=== PATIENT | female | born 1970 | race African-American/Black ===

== ENCOUNTER 2020-01-21 19:43 | Emergency (ER) | payer BC ==
[~2020-01-21] VITALS: Ht 149.9 cm; Wt 75.7 kg
--- OUTSIDE RECORDS SUMMARY | 2020-01-21 19:46 | XMS REPORT ---
Author [facility] Address Unknown Phone Unavailable Care Team Providers Care Installer Technician Name Role Phone ARNOLD EMERY Unavailable Unavailable WOOD SHORT Unavailable Unavailable MIRANDA GUEVARA Unavailable Unavailable ASHLEY CASTILLO Unavailable Unavailable GREGG HUTCHINSON Unavailable Unavailable Payers Payer Name Policy Type Policy Number Effective Date Expiration Date Problems This patient has no known problems. Allergies, Adverse Reactions, Alerts Allergy Name Allergy Type Status Severity Reaction(s) Onset Date Inactive Date Treating Clinician Comments prochlorperazine edisylate DA Active U 2012-11-09 00:00:00 prochlorperazine maleate DA Active U 2012-11-09 00:00:00 Medications This patient has no known medications. Results Test Description Test Time Test Comments Text Results Atomic Results Result Comments RAPID INFLUENZA A&B SCREEN 2020-01-18 04:41:00 RAPID INFLUENZA A AG ([employer]ER) (test iohs=9452) Negative Negative, Inconclusive RAPID INFLUENZA B AG (BEAKER) (test jjsn=2864) Negative Negative, Inconclusive RAD, CHEST, 2 [id number] 04:34:00Reason for exam:->SHORTNESS OF BREATHReason for exam:->FEVERReason for exam:->COUGHIs the patient ?-> NoShould this be performed at the bedside?->NoFINAL REPORT TECHNIQUE: RAD, CHEST, 2 VIEWS COMPARISON: Multiple prior plain radiograph of the chest most recently 08/13/2019. Additional clinical history: Shortness of breath and fever. IMPRESSION: The cardiomediastinal silhouette is within normal limits. Unchanged bandlike airspace opacities in the bilateral lower lungs and compared to multiple prior studies. No new lobar consolidation. No pleural effusion or pneumothorax. Osseous structures are grossly unremarkable. Signed: [facility] Verified Date/Time: 04:34:12 Electronically signed by: JOHNNIE ASCENCIO MD on 12/22 04:34 AM BASIC METABOLIC [id number] 05:57:00* Test Item Value Reference Range Comments SODIUM (BEAKER) (test ruoj=718) 140 meq/L 135-148 POTASSIUM (BEAKER) (test xtrx=677) 4.2 meq/L 3.6-5.5 Specimen slightly hemolyzed CHLORIDE (BEAKER) (test ktto=046) 107 meq/L 98-106 CO2 (BEAKER) (test virq=843) 26 meq/L 20-29 BLOOD UREA NITROGEN (BEAKER) (test gerh=149) 13 mg/dL 10-26 CREATININE (BEAKER) (test vmak=825) 0.66 mg/dL 0.50-1.20 Specimen slightly hemolyzed GLUCOSE RANDOM (BEAKER) (test agmi=573) 105 mg/dL 70-110 CALCIUM (BEAKER) (test cmrk=575) 8.5 mg/dL 8.5-10.5 EGFR (BEAKER) (test lprc=6235) 114 mL/min/1.73 sq m ESTIMATED GFR IS NOT ACCURATE CREATININE CLEARANCE IN PREDICTING GLOMERULAR FILTRATION RATE. ESTIMATED GFR IS NOT APPLICABLE FOR DIALYSIS PATIENTS. CBC W/PLT COUNT & AUTO [id number] 05:44:00* Test Item Value Reference Range Comments WHITE BLOOD CELL COUNT (BEAKER) (test egcr=645) 7.8 K/ L 4.0-10.0 RED BLOOD CELL COUNT (BEAKER) (test qceq=702) 3.00 M/ L 4.00-5.00 HEMOGLOBIN (BEAKER) (test wifh=804) 8.4 GM/DL 12.0-15.5 HEMATOCRIT (BEAKER) (test dlxg=136) 25.6 % 36.0-46.0 MEAN CORPUSCULAR VOLUME (BEAKER) (test uqcz=548) 85.3 fL 82.0-99.0 MEAN CORPUSCULAR HEMOGLOBIN (BEAKER) (test xpge=415) 28.0 pg 27.0-33.0 MEAN CORPUSCULAR HEMOGLOBIN CONC (BEAKER) (test ylks=738) 32.8 GM/DL 32.0-36.0 RED CELL DISTRIBUTION WIDTH (BEAKER) (test fkej=266) 14.8 % 12.0-15.0 PLATELET COUNT (BEAKER) (test bezo=593) 177 K/CU MM 150-430 MEAN PLATELET VOLUME (BEAKER) (test nfxn=809) 10.0 fL 6.0-11.5 NUCLEATED RED BLOOD CELLS (BEAKER) (test hmgm=721) 0 /100 WBC 0-0 NEUTROPHILS RELATIVE PERCENT (BEAKER) (test mujk=976) 59 % LYMPHOCYTES RELATIVE PERCENT (BEAKER) (test xjbs=986) 30 % MONOCYTES RELATIVE PERCENT (BEAKER) (test cyqi=364) 7 % EOSINOPHILS RELATIVE PERCENT (BEAKER) (test afsu=421) 2 % BASOPHILS RELATIVE PERCENT (BEAKER) (test lrkv=435) 0 % NEUTROPHILS ABSOLUTE COUNT (BEAKER) (test llto=152) 4.58 K/ L 1.80-8.00 LYMPHOCYTES ABSOLUTE COUNT (BEAKER) (test akpa=179) 2.34 K/ L 1.48-4.50 MONOCYTES ABSOLUTE COUNT (BEAKER) (test ysgy=075) 0.56 K/ L 0.00-1.30 EOSINOPHILS ABSOLUTE COUNT (BEAKER) (test owcq=556) 0.12 K/ L 0.00-0.50 BASOPHILS ABSOLUTE COUNT (BEAKER) (test cgrc=657) 0.03 K/ L 0.00-0.20 IMMATURE GRANULOCYTES-RELATIVE PERCENT (BEAKER) (test occb=8602) 2 % 0-0 HEMOGLOBIN AND [id number] 17:14:00* Test Item Value Reference Range Comments HEMOGLOBIN (BEAKER) (test gvkc=381) 7.8 GM/DL 12.0-15.5 HEMATOCRIT (BEAKER) (test ssxx=128) 23.6 % 36.0-46.0 BASIC METABOLIC [id number] 06:02:00* Test Item Value Reference Range Comments SODIUM (BEAKER) (test qpwr=564) 139 meq/L 135-148 POTASSIUM (BEAKER) (test alvd=410) 4.6 meq/L 3.6-5.5 CHLORIDE (BEAKER) (test fzqm=080) 106 meq/L 98-106 CO2 (BEAKER) (test szza=649) 26 meq/L 20-29 BLOOD UREA NITROGEN (BEAKER) (test yali=016) 13 mg/dL 10-26 CREATININE (BEAKER) (test qjko=895) 0.72 mg/dL 0.50-1.20 GLUCOSE RANDOM (BEAKER) (test uidh=242) 119 mg/dL 70-110 CALCIUM (BEAKER) (test smqq=366) 8.7 mg/dL 8.5-10.5 EGFR (BEAKER) (test hska=3404) 104 mL/min/1.73 sq m ESTIMATED GFR IS NOT ACCURATE CREATININE CLEARANCE IN PREDICTING GLOMERULAR FILTRATION RATE. ESTIMATED GFR IS NOT APPLICABLE FOR DIALYSIS PATIENTS. CBC W/PLT COUNT & AUTO [id number] 05:48:00* Test Item Value Reference Range Comments WHITE BLOOD CELL COUNT (BEAKER) (test jzxh=843) 7.0 K/ L 4.0-10.0 RED BLOOD CELL COUNT (BEAKER) (test cjem=518) 2.39 M/ L 4.00-5.00 HEMOGLOBIN (BEAKER) (test kheg=488) 6.7 GM/DL 12.0-15.5 HEMATOCRIT (BEAKER) (test uczb=541) 20.5 % 36.0-46.0 MEAN CORPUSCULAR VOLUME (BEAKER) (test djft=802) 85.8 fL 82.0-99.0 MEAN CORPUSCULAR HEMOGLOBIN (BEAKER) (test ldya=208) 28.0 pg 27.0-33.0 MEAN CORPUSCULAR HEMOGLOBIN CONC (BEAKER) (test myyh=803) 32.7 GM/DL 32.0-36.0 RED CELL DISTRIBUTION WIDTH (BEAKER) (test tpco=092) 13.6 % 12.0-15.0 PLATELET COUNT (BEAKER) (test qwit=055) 189 K/CU MM 150-430 MEAN PLATELET VOLUME (BEAKER) (test lovo=010) 9.5 fL 6.0-11.5 NUCLEATED RED BLOOD CELLS (BEAKER) (test dljj=323) 0 /100 WBC 0-0 NEUTROPHILS RELATIVE PERCENT (BEAKER) (test zete=613) 68 % LYMPHOCYTES RELATIVE PERCENT (BEAKER) (test rnls=922) 21 % MONOCYTES RELATIVE PERCENT (BEAKER) (test abft=659) 10 % EOSINOPHILS RELATIVE PERCENT (BEAKER) (test rltk=681) 0 % BASOPHILS RELATIVE PERCENT (BEAKER) (test ttgh=477) 0 % NEUTROPHILS ABSOLUTE COUNT (BEAKER) (test ojnf=858) 4.73 K/ L 1.80-8.00 LYMPHOCYTES ABSOLUTE COUNT (BEAKER) (test lklj=152) 1.43 K/ L 1.48-4.50 MONOCYTES ABSOLUTE COUNT (BEAKER) (test qrki=648) 0.72 K/ L 0.00-1.30 EOSINOPHILS ABSOLUTE COUNT (BEAKER) (test czoy=741) 0.02 K/ L 0.00-0.50 BASOPHILS ABSOLUTE COUNT (BEAKER) (test qmhq=223) 0.02 K/ L 0.00-0.20 IMMATURE GRANULOCYTES-RELATIVE PERCENT (BEAKER) (test mwue=8595) 1 % 0-0 VENOUS DOPPLER LEG, [id number] 11:32:00Reason for exam:->Edema, painFINAL REPORT Right lower extremity venous Doppler History: Right leg swelling, recent knee surgery Comparison: none Findings: Study is ob tained using morgan scale, compression technique, and color flow/spectral analysis . The right common femoral, superficial femoral, and popliteal veins demonstrate expected compressibility. No echogenic filling defect or turbulent flow is tasneem ntified. Expected venous waveforms and augmentation responses are observed thro ughout. Interrogated portions of the right posterior tibial and peroneal veins a ppear patent. Impression: No evidence of deep venous thrombosis in the right low er extremity. Right lower extremity arterial Doppler HISTORY: Right leg swelli ng, status post recent right knee surgery COMPARISON: None FINDINGS: The study i s obtained utilizing conventional grayscale imaging as well as color flow with s pectral analysis. The right common femoral, superficial femoral, popliteal, ante rior and posterior tibial, and peroneal arteries are widely patent. No atheroscl erotic plaque formation is visualized. There is no appreciable luminal narrowing . No significant focal velocity acceleration is identified. There is no blunting of systolic upstroke. IMPRESSION: Unremarkable right lower extremity arterial D oppler. Signed: Angel Haynes MDReport Verified Date/Time: 08/13/2019 11:32:4 3 Reading Location: [facility] Diagnostic Imaging Reading Room - [place] [id number] ectronically signed by: ANGEL HAYNES MD on 08/13/2019 11:32 AM ARTERIAL DOPPLER LEG, [id number] 11:32:00Reason for exam:->edema, pain, parathesias FINAL REPORT Right lower extremity venous Doppler History : Right leg swelling, recent knee surgery Comparison: none Findings: Study is ob tained using morgan scale, compression technique, and color flow/spectral analysis . The right common femoral, superficial femoral, and popliteal veins demonstrate expected compressibility. No echogenic filling defect or turbulent flow is tasneem ntified. Expected venous waveforms and augmentation responses are observed thro ughout. Interrogated portions of the right posterior tibial and peroneal veins a ppear patent. Impression: No evidence of deep venous thrombosis in the right low er extremity. Right lower extremity arterial Doppler HISTORY: Right leg swelli ng, status post recent right knee surgery COMPARISON: None FINDINGS: The study i s obtained utilizing conventional grayscale imaging as well as color flow with s pectral analysis. The right common femoral, superficial femoral, popliteal, ante rior and posterior tibial, and peroneal arteries are widely patent. No atheroscl erotic plaque formation is visualized. There is no appreciable luminal narrowing . No significant focal velocity acceleration is identified. There is no blunting of systolic upstroke. IMPRESSION: Unremarkable right lower extremity arterial D oppler. Signed: Angel Haynes MDReport Verified Date/Time: 08/13/2019 11:32:4 3 Reading Location: [facility] Diagnostic Imaging Reading Room - [address] ectronically signed by: ANGEL HAYNES MD on 08/13/2019 11:32 AM COMPREHENSIVE METABOLIC [id number] 10:48:00* Test Item Value Reference Range Comments TOTAL PROTEIN (BEAKER) (test cvsd=351) 5.8 gm/dL 6.0-8.5 Specimen slightly hemolyzed ALBUMIN (BEAKER) (test bmfm=1280) 3.5 g/dL 3.5-5.0 Specimen slightly hemolyzed ALKALINE PHOSPHATASE (BEAKER) (test dgrz=998) 48 U/L 30-115 BILIRUBIN TOTAL (BEAKER) (test xwbh=360) 0.3 mg/dL 0.1-1.2 Specimen slightly hemolyzed SODIUM (BEAKER) (test xnsv=128) 134 meq/L 135-148 POTASSIUM (BEAKER) (test csut=902) 5.1 meq/L 3.6-5.5 Specimen slightly hemolyzed CHLORIDE (BEAKER) (test ysju=067) 103 meq/L 98-106 CO2 (BEAKER) (test kfkp=330) 21 meq/L 20-29 BLOOD UREA NITROGEN (BEAKER) (test uisd=272) 13 mg/dL 10-26 CREATININE (BEAKER) (test mces=225) 0.70 mg/dL 0.50-1.20 Specimen slightly hemolyzed GLUCOSE RANDOM (BEAKER) (test npfk=257) 117 mg/dL 70-110 CALCIUM (BEAKER) (test gpbg=766) 8.8 mg/dL 8.5-10.5 AST (SGOT) (BEAKER) (test yfqp=282) 18 U/L 5-40 Specimen slightly hemolyzed ALT (SGPT) (BEAKER) (test xifv=387) 14 U/L 5-50 Specimen slightly hemolyzed EGFR (BEAKER) (test dueg=9193) 107 mL/min/1.73 sq m ESTIMATED GFR IS NOT ACCURATE CREATININE CLEARANCE IN PREDICTING GLOMERULAR FILTRATION RATE. ESTIMATED GFR IS NOT APPLICABLE FOR DIALYSIS PATIENTS. TROPONIN [id number] 10:32:00* Test Item Value Reference Range Comments TROPONIN I (BEAKER) (test rhal=337) < ng/mL 0.00-0.15 Troponin I (TnI) levels must be interpreted in the context of the presenting sym ptoms and the clinical findings. Elevated TnI levels indicate myocardial damage, but are not specific for ischemic heart disease. Elevated TnI levels are seen in patients with other cardiac conditions (including myocarditis and congestive h eart failure), and slight TnI elevations occur in patients with other conditions , including sepsis, renal failure, acidosis, acute neurological disease, and per sistent tachyarrhythmia.CREATINE KINASE (CK)2019-08-13 10:25:00* Test Item Value Reference Range Comments CREATINE KINASE TOTAL (BEAKER) (test rukb=291) 299 U/L 25-235 CBC W/PLT COUNT & AUTO [id number] 10:09:00* Test Item Value Reference Range Comments WHITE BLOOD CELL COUNT (BEAKER) (test engp=116) 6.1 K/ L 4.0-10.0 RED BLOOD CELL COUNT (BEAKER) (test oqoq=547) 2.93 M/ L 4.00-5.00 HEMOGLOBIN (BEAKER) (test ctqt=032) 8.3 GM/DL 12.0-15.5 HEMATOCRIT (BEAKER) (test pxae=152) 27.2 % 36.0-46.0 MEAN CORPUSCULAR VOLUME (BEAKER) (test pyzk=847) 92.8 fL 82.0-99.0 MEAN CORPUSCULAR HEMOGLOBIN (BEAKER) (test kndb=925) 28.3 pg 27.0-33.0 MEAN CORPUSCULAR HEMOGLOBIN CONC (BEAKER) (test bget=050) 30.5 GM/DL 32.0-36.0 RED CELL DISTRIBUTION WIDTH (BEAKER) (test kssv=989) 13.5 % 12.0-15.0 PLATELET COUNT (BEAKER) (test vakn=621) 181 K/CU MM 150-430 MEAN PLATELET VOLUME (BEAKER) (test qjpt=185) 9.6 fL 6.0-11.5 NUCLEATED RED BLOOD CELLS (BEAKER) (test xqin=818) 0 /100 WBC 0-0 NEUTROPHILS RELATIVE PERCENT (BEAKER) (test xhpx=113) 76 % LYMPHOCYTES RELATIVE PERCENT (BEAKER) (test kpmg=918) 13 % MONOCYTES RELATIVE PERCENT (BEAKER) (test vaov=288) 10 % EOSINOPHILS RELATIVE PERCENT (BEAKER) (test ojwd=811) 0 % BASOPHILS RELATIVE PERCENT (BEAKER) (test dhvp=138) 0 % NEUTROPHILS ABSOLUTE COUNT (BEAKER) (test txgg=826) 4.63 K/ L 1.80-8.00 LYMPHOCYTES ABSOLUTE COUNT (BEAKER) (test dpln=627) 0.79 K/ L 1.48-4.50 MONOCYTES ABSOLUTE COUNT (BEAKER) (test slda=597) 0.61 K/ L 0.00-1.30 EOSINOPHILS ABSOLUTE COUNT (BEAKER) (test gsap=167) 0.01 K/ L 0.00-0.50 BASOPHILS ABSOLUTE COUNT (BEAKER) (test qyyf=696) 0.02 K/ L 0.00-0.20 IMMATURE GRANULOCYTES-RELATIVE PERCENT (BEAKER) (test gdel=9281) 0 % 0-0 RAD, CHEST, 1 VIEW, NON [id number] 09:38:00Reason for exam:->SOBFINAL REPORT CLINICAL HISTORY: SOB TECHNIQUE: 1 view of the chest. COMPARISON: 07/12/2019 IMPRESSION: There is minimal bibasilar atelectasis. There is no significant pleural fluid. The cardiomediastinal silhouette is magnified by technique. Signed: Amie Garcia MDReport Verified Date/Time: 08/13/2019 09:38:27 Reading Location: [facility] Radiology Reading Room Shae ctronically signed by: AMIE GARCIA M.D. on 08/13/2019 09:38 AM PHOSPHORUS 2019-08-13 09:26:00* Test Item Value Reference Range Comments PHOSPHORUS (BEAKER) (test pcvz=081) 3.4 mg/dL 2.5-4.5 BASIC METABOLIC [id number] 06:06:00* Test Item Value Reference Range Comments SODIUM (BEAKER) (test jqlh=247) 135 meq/L 135-148 POTASSIUM (BEAKER) (test vbhd=364) 4.6 meq/L 3.6-5.5 CHLORIDE (BEAKER) (test nvdh=400) 102 meq/L 98-106 CO2 (BEAKER) (test nxnu=280) 24 meq/L 20-29 BLOOD UREA NITROGEN (BEAKER) (test ghlf=943) 14 mg/dL 10-26 CREATININE (BEAKER) (test lxhr=424) 0.72 mg/dL 0.50-1.20 GLUCOSE RANDOM (BEAKER) (test usnq=062) 124 mg/dL 70-110 CALCIUM (BEAKER) (test ynac=911) 8.7 mg/dL 8.5-10.5 EGFR (BEAKER) (test fhgn=3006) 104 mL/min/1.73 sq m ESTIMATED GFR IS NOT ACCURATE CREATININE CLEARANCE IN PREDICTING GLOMERULAR FILTRATION RATE. ESTIMATED GFR IS NOT APPLICABLE FOR DIALYSIS PATIENTS. CBC W/PLT COUNT & AUTO [id number] 05:56:00* Test Item Value Reference Range Comments WHITE BLOOD CELL COUNT (BEAKER) (test xwtu=998) 6.0 K/ L 4.0-10.0 RED BLOOD CELL COUNT (BEAKER) (test mgtu=857) 3.23 M/ L 4.00-5.00 HEMOGLOBIN (BEAKER) (test agqk=236) 9.2 GM/DL 12.0-15.5 HEMATOCRIT (BEAKER) (test rgzr=488) 28.6 % 36.0-46.0 MEAN CORPUSCULAR VOLUME (BEAKER) (test ewfx=181) 88.5 fL 82.0-99.0 MEAN CORPUSCULAR HEMOGLOBIN (BEAKER) (test dmli=103) 28.5 pg 27.0-33.0 MEAN CORPUSCULAR HEMOGLOBIN CONC (BEAKER) (test eqls=123) 32.2 GM/DL 32.0-36.0 RED CELL DISTRIBUTION WIDTH (BEAKER) (test nhmx=575) 13.4 % 12.0-15.0 PLATELET COUNT (BEAKER) (test uzar=956) 219 K/CU MM 150-430 MEAN PLATELET VOLUME (BEAKER) (test letw=507) 9.7 fL 6.0-11.5 NUCLEATED RED BLOOD CELLS (BEAKER) (test sisx=992) 0 /100 WBC 0-0 NEUTROPHILS RELATIVE PERCENT (BEAKER) (test ubss=053) 68 % LYMPHOCYTES RELATIVE PERCENT (BEAKER) (test tcqt=525) 21 % MONOCYTES RELATIVE PERCENT (BEAKER) (test uthq=541) 9 % EOSINOPHILS RELATIVE PERCENT (BEAKER) (test zlit=223) 1 % BASOPHILS RELATIVE PERCENT (BEAKER) (test ohxv=857) 0 % NEUTROPHILS ABSOLUTE COUNT (BEAKER) (test jjph=213) 4.07 K/ L 1.80-8.00 LYMPHOCYTES ABSOLUTE COUNT (BEAKER) (test ifzf=140) 1.28 K/ L 1.48-4.50 MONOCYTES ABSOLUTE COUNT (BEAKER) (test kvdm=610) 0.56 K/ L 0.00-1.30 EOSINOPHILS ABSOLUTE COUNT (BEAKER) (test zolv=854) 0.03 K/ L 0.00-0.50 BASOPHILS ABSOLUTE COUNT (BEAKER) (test rhci=731) 0.02 K/ L 0.00-0.20 IMMATURE GRANULOCYTES-RELATIVE PERCENT (BEAKER) (test lcik=3137) 0 % 0-0 MRSA [id number] 08:47:00* Test Item Value Reference Range Comments CULTURE (BEAKER) (test kfmj=6195) No MRSA isolated RAD, CHEST, 2 [id number] 12:14:00Reason for Exam:->pre-operative clearance FINAL REPORT History: Right knee pain, right knee osteoa rthritis, preoperative evaluation for knee arthroplasty Comparison: 08/17/2017 F indings: The lungs are clear. No pleural effusions or pneumothorax. The heart sh adow is normal in size. The thoracic aorta is normal in caliber. Degenerative ch anges are present in the spine. Impression: No evidence of acute cardiopulmonary disease. Signed: Ravi Colón Verified Date/Time: 07/12/2019 12:14:06 Reading Location: [facility] Radiology Reading Room , JOINT SURVEY, 1V 2 OR MORE JOINTS 2019-07-12 12:13:00Reason for Exam:->[facility] protocol , right knee arthoplasty FINAL REPORT AP WEIGHT-BEARING RADIOGRAPHS OF THE RIGHT L OWER EXTREMITY HISTORY: Right knee osteoarthritis, preoperative evaluation for r ight knee arthroplasty COMPARISON: MRI right knee limited of the same date FINDI NGS: AP weight-bearing radiographs of the right lower extremity were obtained us ing the [facility] protocol. There is advanced joint space narrowing in the medi al femorotibial joint, associated with subchondral sclerosis and moderate margin al osteophytes. No abnormalities are seen in the right hip or right ankle. Sign ed: Ravi Colón Verified Date/Time: 07/12/2019 12:13:23 Reading Locat ion: [facility] Radiology Reading Room , EXTREMITY, LOWER, JOINT, WITHOUT CONTRAST, RIGHT 2019-07-12 12:04:00Reason for Exam:->[facility]are protocolFINAL REPORT MRI of the right knee History: [facility] protocol Comparison: No priors Technique: Multiplanar multisequence MRI of the right knee was performed without contrast. Findings: Extensor mechanism: The patellar and quadriceps tendons are intact. No retinacular abnormalities. Ligaments: The anterior and posterior cruciate ligaments are intact. The medial and lateral collateral ligament complexes are intact. Menisci: There is maceration of the anterior horn and body of the medial meniscus, which are also extruded. Posterior horn of the medial meniscus demonstrates marked free margin irregularity/truncation. Lateral meniscus is intact. Bones/Cartilage: Severe osteoarthritis in the medial compartment, with full-thickness cartilage loss, subchondral edema, and cystic change as well as large marginal osteophyte formation. 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 No high-grade cartilage loss is identified in the lateral compartment. Fluid: Moderate joint effusion with mild synovitis. Two small loose bodies are seen in the popliteus recess. Muscles: No edema or atrophy. Impression: 1. M aceration of the anterior horn and body of the medial meniscus. 2. Right knee os teoarthritis, most severe in the medial compartment, as described. 3. Moderate j oint effusion with mild degree of synovitis. Signed: Eva Vaughneport Verified Date/Time: 07/12/2019 12:04:04 Reading Location: [address] [facility] P M BASIC METABOLIC [id number] 19:07:00* Test Item Value Reference Range Comments SODIUM (BEAKER) (test djjv=141) 137 meq/L 135-148 POTASSIUM (BEAKER) (test dvft=153) 5.2 meq/L 3.6-5.5 CHLORIDE (BEAKER) (test nqlz=071) 99 meq/L 98-106 CO2 (BEAKER) (test pyxg=793) 29 meq/L 24-32 BLOOD UREA NITROGEN (BEAKER) (test neoi=269) 28 mg/dL 10-26 CREATININE (BEAKER) (test yjln=748) 0.98 mg/dL 0.50-1.20 GLUCOSE RANDOM (BEAKER) (test vlkg=270) 95 mg/dL 70-110 CALCIUM (BEAKER) (test edtq=496) 9.4 mg/dL 8.5-10.5 EGFR (BEAKER) (test aglf=2926) 73 mL/min/1.73 sq m ESTIMATED GFR IS NOT ACCURATE CREATININE CLEARANCE IN PREDICTING GLOMERULAR FILTRATION RATE. ESTIMATED GFR IS NOT APPLICABLE FOR DIALYSIS PATIENTS. URINALYSIS W/ [id number] 19:05:00* Test Item Value Reference Range Comments COLOR (BEAKER) (test uzqy=482) Yellow CLARITY (BEAKER) (test kshc=294) Cloudy SPECIFIC GRAVITY UA (BEAKER) (test jcvl=312) 1.025 1.001-1.035 PH UA (BEAKER) (test pkwz=581) 5.5 5.0-8.0 PROTEIN UA (BEAKER) (test nxnd=282) 30 mg/dL Negative GLUCOSE UA (BEAKER) (test tobj=480) Negative Negative KETONES UA (BEAKER) (test zsfm=270) Negative Negative BILIRUBIN UA (BEAKER) (test juzo=275) Negative Negative BLOOD UA (BEAKER) (test iptv=034) Large Negative NITRITE UA (BEAKER) (test hwsr=032) Negative Negative LEUKOCYTE ESTERASE UA (BEAKER) (test fycl=370) Trace Negative UROBILINOGEN UA (BEAKER) (test ncgd=094) 0.2 mg/dL 0.2-1.0 BACTERIA (BEAKER) (test iypa=509) Few RBC UA-MANUAL (BEAKER) (test ocux=3402) >100 /HPF WBC UA-MANUAL (BEAKER) (test oayi=2439) 10-20 /HPF SQUAMOUS EPITHELIAL MANUAL (BEAKER) (test jfif=2224) 5-10 /HPF SOURCE(BEAKER) (test hknh=8416) CBC W/PLT COUNT & AUTO [id number] 19:00:00* Test Item Value Reference Range Comments WHITE BLOOD CELL COUNT (BEAKER) (test ahri=007) 8.9 K/ L 4.0-10.0 RED BLOOD CELL COUNT (BEAKER) (test ggkd=903) 4.22 M/ L 4.00-5.00 HEMOGLOBIN (BEAKER) (test cyiu=707) 11.1 GM/DL 12.0-15.0 HEMATOCRIT (BEAKER) (test mhuu=260) 34.9 % 36.0-45.0 MEAN CORPUSCULAR VOLUME (BEAKER) (test rpsv=458) 82.6 fL 82.0-99.0 MEAN CORPUSCULAR HEMOGLOBIN (BEAKER) (test shep=862) 26.3 pg 27.0-33.0 MEAN CORPUSCULAR HEMOGLOBIN CONC (BEAKER) (test dwss=388) 31.9 GM/DL 32.0-36.0 RED CELL DISTRIBUTION WIDTH (BEAKER) (test wrzj=686) 13.5 % 10.3-14.2 PLATELET COUNT (BEAKER) (test gqdi=780) 362 K/CU MM 150-430 MEAN PLATELET VOLUME (BEAKER) (test nuej=587) 7.6 fL 6.5-10.5 NEUTROPHILS RELATIVE PERCENT (BEAKER) (test akuo=628) 65 % LYMPHOCYTES RELATIVE PERCENT (BEAKER) (test eyzg=170) 27 % MONOCYTES RELATIVE PERCENT (BEAKER) (test uryt=049) 5 % EOSINOPHILS RELATIVE PERCENT (BEAKER) (test dcjk=530) 1 % BASOPHILS RELATIVE PERCENT (BEAKER) (test wzav=463) 1 % NEUTROPHILS ABSOLUTE COUNT (BEAKER) (test huau=709) 5.82 K/ L 1.80-8.00 LYMPHOCYTES ABSOLUTE COUNT (BEAKER) (test sdtb=958) 2.42 K/ L 1.48-4.50 MONOCYTES ABSOLUTE COUNT (BEAKER) (test lhpv=598) 0.46 K/ L 0.00-1.30 EOSINOPHILS ABSOLUTE COUNT (BEAKER) (test nhtw=030) 0.12 K/ L 0.00-0.50 BASOPHILS ABSOLUTE COUNT (BEAKER) (test mspf=729) 0.08 K/ L 0.00-0.20 URINE [id number] 17:19:00* Test Item Value Reference Range Comments CULTURE (BEAKER) (test kydp=7658) See comment <10,000 col/mL Gram negative [id number],000 col/mL skin floraCT, [id number] 14:22:00FINAL REPORT TECHNIQUE: CT of the abdomen and pelvis WITHOUT intravenous contrast and WITHOUT oral contrast. Dose modulation, iterative reconstruction, and/or weight-based adjustment of the mA/kV was utilized to reduce the radiation dose to as low as reasonably achievable. INDICATION: Left flank pain, kidney stone, hematuria. COMPARISON: CT from 05/04/2016. FINDINGS: ABSENCE OF INTRAVENOUS CONTRAST DECREASES SENSITIVITY FOR DETECTION OF FOCAL LESIONS AND VASCULAR PATHOLOGY. LOWER THORAX: Unremarkable. HEPATOBILIARY: A hypodensity in segment six measures 6 mm and is too small to further characterize but similar to the examination from 05/04/2016. A cyst in segment IV measures 1.6 cm on axial image 25. A cyst in segment II measured 1.2 cm. Gallbladder is unremarkable. No biliary ductal dilatation.SPLEEN: No splenomegaly.PANCREAS: No focal masses or ductal dilatation. ADRENALS: No adrenal nodules.KIDNEYS/URETERS: There are two punctate nonobstructing and one lower pole 4 mm nonobstructing left renal stones. There are at least five unaffected renal stones which measure up to 3 mm. There is a left mid ureteral 7 mm stone on image 47 which is similar in appearance and location to the prior CT. No significant hydronephrosis. PELVIC ORGANS/BLADDER: Unremarkable. PERITONEUM/RETROPERITONEUM: No free air or fluid.LYMPH NODES: No lymphadenopathy.VESSELS: Unremarkable. GI TRACT: No distention or wall thicken ing. Mild diverticulosis of the hepatic flexure. The appendix is normal. BONES A ND SOFT TISSUES: Unremarkable. IMPRESSION: 1.A left mid ureteral stone measures seven mm and does not result in significant hydronephrosis. This stone is in a similar position compared to the stone from 05/04/2016. 2.Bilateral nonobstructin g renal stones measuring up to 4 mm and the left kidney. Signed: Robel Finnegan port Verified Date/Time: 08/31/2018 14:22:53 Reading Location: [facility] C013Y CT Body Reading Room 18 02:22 PM COMPREHENSIVE METABOLIC [id number] 14:21:00* Test Item Value Reference Range Comments TOTAL PROTEIN (BEAKER) (test bkdu=360) 8.1 gm/dL 6.0-8.5 ALBUMIN (BEAKER) (test ugzs=7126) 4.6 g/dL 3.5-5.0 ALKALINE PHOSPHATASE (BEAKER) (test wqyg=647) 66 U/L 30-115 BILIRUBIN TOTAL (BEAKER) (test psqf=706) 0.4 mg/dL 0.1-1.2 SODIUM (BEAKER) (test wtvn=673) 138 meq/L 135-148 POTASSIUM (BEAKER) (test heyy=108) 3.8 meq/L 3.6-5.5 CHLORIDE (BEAKER) (test ades=741) 99 meq/L 98-106 CO2 (BEAKER) (test kdmj=104) 29 meq/L 24-32 BLOOD UREA NITROGEN (BEAKER) (test umhs=057) 18 mg/dL 10-26 CREATININE (BEAKER) (test pbcj=970) 0.62 mg/dL 0.50-1.20 GLUCOSE RANDOM (BEAKER) (test wxer=057) 116 mg/dL 70-110 CALCIUM (BEAKER) (test byye=377) 9.6 mg/dL 8.5-10.5 AST (SGOT) (BEAKER) (test aiwo=189) 20 U/L 5-40 ALT (SGPT) (BEAKER) (test lpoz=012) 16 U/L 5-50 EGFR (BEAKER) (test xyso=7519) 123 mL/min/1.73 sq m ESTIMATED GFR IS NOT ACCURATE CREATININE CLEARANCE IN PREDICTING GLOMERULAR FILTRATION RATE. ESTIMATED GFR IS NOT APPLICABLE FOR DIALYSIS PATIENTS. CBC W/PLT COUNT & AUTO [id number] 14:13:00* Test Item Value Reference Range Comments WHITE BLOOD CELL COUNT (BEAKER) (test clyw=135) 5.8 K/ L 4.0-10.0 RED BLOOD CELL COUNT (BEAKER) (test dvso=117) 4.47 M/ L 4.00-5.00 HEMOGLOBIN (BEAKER) (test gwfw=851) 11.6 GM/DL 12.0-15.0 HEMATOCRIT (BEAKER) (test lexb=797) 36.5 % 36.0-45.0 MEAN CORPUSCULAR VOLUME (BEAKER) (test qxbu=761) 81.8 fL 82.0-99.0 MEAN CORPUSCULAR HEMOGLOBIN (BEAKER) (test kjoe=026) 26.1 pg 27.0-33.0 MEAN CORPUSCULAR HEMOGLOBIN CONC (BEAKER) (test amcz=825) 31.9 GM/DL 32.0-36.0 RED CELL DISTRIBUTION WIDTH (BEAKER) (test wrmi=098) 13.8 % 10.3-14.2 PLATELET COUNT (BEAKER) (test athe=963) 323 K/CU MM 150-430 MEAN PLATELET VOLUME (BEAKER) (test cryc=758) 7.2 fL 6.5-10.5 NEUTROPHILS RELATIVE PERCENT (BEAKER) (test cwnj=055) 58 % LYMPHOCYTES RELATIVE PERCENT (BEAKER) (test fnwo=296) 34 % MONOCYTES RELATIVE PERCENT (BEAKER) (test olvy=137) 5 % EOSINOPHILS RELATIVE PERCENT (BEAKER) (test hrtp=031) 2 % BASOPHILS RELATIVE PERCENT (BEAKER) (test ykcl=260) 1 % NEUTROPHILS ABSOLUTE COUNT (BEAKER) (test optd=751) 3.37 K/ L 1.80-8.00 LYMPHOCYTES ABSOLUTE COUNT (BEAKER) (test dgyl=410) 1.95 K/ L 1.48-4.50 MONOCYTES ABSOLUTE COUNT (BEAKER) (test kady=645) 0.30 K/ L 0.00-1.30 EOSINOPHILS ABSOLUTE COUNT (BEAKER) (test lzqx=929) 0.14 K/ L 0.00-0.50 BASOPHILS ABSOLUTE COUNT (BEAKER) (test xmao=947) 0.03 K/ L 0.00-0.20 URINALYSIS W/ [id number] 13:53:00* Test Item Value Reference Range Comments COLOR (BEAKER) (test ehst=611) Red CLARITY (BEAKER) (test plqz=663) Turbid SPECIFIC GRAVITY UA (BEAKER) (test arjn=977) 1.035 1.001-1.035 Read from the refractometer. PH UA (BEAKER) (test aqri=535) 5.5 5.0-8.0 PROTEIN UA (BEAKER) (test koni=134) 100 mg/dL Negative GLUCOSE UA (BEAKER) (test nrhn=349) Negative Negative KETONES UA (BEAKER) (test litj=393) Trace Negative BILIRUBIN UA (BEAKER) (test mvvv=426) Positive Negative BLOOD UA (BEAKER) (test pbnj=427) Large Negative NITRITE UA (BEAKER) (test celj=658) Negative Negative LEUKOCYTE ESTERASE UA (BEAKER) (test viat=096) Trace Negative UROBILINOGEN UA (BEAKER) (test viiv=685) 0.2 mg/dL 0.2-1.0 BACTERIA (BEAKER) (test wybd=270) Many RBC UA-MANUAL (BEAKER) (test anpx=6293) >100 /HPF WBC UA-MANUAL (BEAKER) (test jwti=6496) <5 /HPF SQUAMOUS EPITHELIAL MANUAL (BEAKER) (test dvez=4427) <5 /HPF SOURCE(BEAKER) (test ascw=3058) RAPID INFLUENZA A&B [id number] 19:45:00* Test Item Value Reference Range Comments RAPID INFLUENZA A AG (BEAKER) (test frfu=9933) Negative Negative, Inconclusive RAPID INFLUENZA B AG (BEAKER) (test kjrd=4328) Negative Negative, Inconclusive RAD, CHEST, 2 [id number] 19:41:00Reason for exam:->feverReason for exam:-> coughIs the patient ?->NoShould this be performed at the bedside?->No FINAL REPORT EXAMINATION: 2 VIEW CHEST INDICATION: FEVER, COUGH IMPRESSION: Compared with AP portable chest 10/27/2014 No evidence of focal lung consolidation, pulmonary edema or pleural effusion. The heart is borderline enlarged but stable. Mediastinal contours are unchanged. No evidence of an acute osseous abnormality or pneumothorax. Signed: Gianna Richard ate/Time: 08/17/2017 19:41:01 Reading Location: [address] Reading Room
[2020-01-21] MEDS ORDERED: ALBUTEROL SULF 0.083% NEB SOLN 3 ML NEB NEB STA (19:53)
[2020-01-21] MEDS ORDERED: METHYLPREDNISOLONE SOD SUCC 125 MG/2ML VIAL IV ONE (20:00)
[2020-01-21 20:18] LABS: BASOPHILS % 0.3 % (0.0-1.0); HEMOGLOBIN 12.5 g/dL (12.0-16.0); LYMPHOCYTES % 15.3 % (18.0-39.1); MEAN CORPUSCULAR HEMOGLOBIN 28.1 pg (28-32); MEAN CORPUSCULAR HGB CONC 32.1 g/dL (31-35); MEAN CORPUSCULAR VOLUME 87.6 fL (81-99); MONOCYTES # (AUTO) 0.8 (0.2-0.8); MONOCYTES % 11.5 % (4.4-11.3); NEUTROPHILS # (AUTO) 4.8 (2.1-6.9); PLATELET COUNT 308 x10e3/uL (140-360); RED BLOOD COUNT 4.45 x10e6/uL (3.6-5.1); RED CELL DISTRIBUTION WIDTH 14.1 % (11.7-14.4)
[2020-01-21 21:00] LABS: ALANINE AMINOTRANSFERASE 36 IU/L (0-55); ALBUMIN 4.6 g/dL (3.5-5.0); ALBUMIN/GLOBULIN RATIO 1.4 (0.8-2.0); ALKALINE PHOSPHATASE 78 IU/L (40-150); ANION GAP 14.1 mmol/L (8-16); BLOOD UREA NITROGEN 21 mg/dL (7-26); BUN/CREATININE RATIO 26 (6-25); CALCIUM 9.7 mg/dL (8.4-10.2); CARBON DIOXIDE 27 mmol/L (22-29); CHLORIDE 106 mmol/L (98-107); CREATINE KINASE 98 IU/L (29-168); CREATININE, SERUM 0.82 mg/dL (0.57-1.11); EST GLOMERULAR FILTRATION RATE > 60 ML/MIN (60-); GLUCOSE 111 mg/dL (74-118); POTASSIUM 4.1 mmol/L (3.5-5.1); SODIUM 143 mmol/L (136-145)
[2020-01-21] MEDS ORDERED: ALBUTEROL/IPRATROPIUM 3 ML NEB NEB ONE (21:30)
--- NOTE | 2020-01-21 21:51 | Diagnostic Imaging Report ---
EXAMINATION: CHEST SINGLE (PORTABLE) COMPARISON: None INDICATION: Asthma, shortness of breath ^ERMD ORDER ^[id number] ^2129 ^Y DISCUSSION: Frontal view of the chest obtained at 2131 hours. HEART AND MEDIASTINUM: The cardiomediastinal silhouette is unremarkable. LINES: None. LUNGS: Lung volumes are low. Bibasilar atelectasis or small infiltrates. Vascular markings are normal. PLEURA: No pleural effusion or pneumothorax. BONES AND SOFT TISSUES: No focal osseous lesion. The soft tissues are normal. IMPRESSION: Low lung volumes and bibasilar atelectasis. Small infiltrates cannot be excluded in the appropriate clinical setting. Signed by: Dr. Shonda Aguilar MD on 01/21/2020 9:48 PM
[2020-01-21 22:12] VITALS: BP 120/70
== END 2020-01-21 22:25 | disposition home or self-care (01) ==
LOC: ER 19:43
DX: R06.00 Dyspnea, unspecified (principal); J45.41 Moderate persistent asthma with (acute) exacerbation
CPT/HCPCS: 36415; 71045; 80053; 82550; 82553; 83880; 84484; 85025; 87400; 93005; 94640; 99284; J2930

== ENCOUNTER 2020-01-26 07:57 | Inpatient (IN) | payer BC, OTHER ==
[~2020-01-26] VITALS: Ht 149.9 cm; Wt 71.9 kg
[2020-01-26 08:56] LABS: BASOPHILS % 0.2 % (0.0-1.0); EOSINOPHILS % 0.1 % (0.0-6.0); HEMATOCRIT 36.3 % (34.2-44.1); HEMOGLOBIN 11.7 g/dL (12.0-16.0); LYMPHOCYTES # (AUTO) 0.7 (1.0-3.2); LYMPHOCYTES % 4.4 % (18.0-39.1); MEAN CORPUSCULAR HEMOGLOBIN 27.6 pg (28-32); MEAN CORPUSCULAR HGB CONC 32.2 g/dL (31-35); MEAN CORPUSCULAR VOLUME 85.6 fL (81-99); MONOCYTES # (AUTO) 0.3 (0.2-0.8); MONOCYTES % 1.6 % (4.4-11.3); NEUTROPHILS # (AUTO) 15.3 (2.1-6.9); NEUTROPHILS % 91.8 % (38.7-80.0); PLATELET COUNT 273 x10e3/uL (140-360); RED BLOOD COUNT 4.24 x10e6/uL (3.6-5.1); RED CELL DISTRIBUTION WIDTH 13.8 % (11.7-14.4)
[2020-01-26 09:08] LABS: INR 1.07; PROTHROMBIN TIME 14.6 seconds (11.9-14.5)
--- NOTE | 2020-01-26 09:13 | Diagnostic Imaging Report ---
EXAMINATION: CHEST SINGLE (PORTABLE) INDICATION: ^cough, short of breath ^[id number] ^0820 COMPARISON: 01/21/2020 FINDINGS: AP view TUBES and LINES: None. LUNGS: Low lung volumes. Bilateral mid to lower lung field airspace opacities. PLEURA: No significant pleural effusion or pneumothorax. HEART AND MEDIASTINUM: The cardiomediastinal silhouette is unremarkable. BONES AND SOFT TISSUES: No acute osseous lesion. Soft tissues are unremarkable. UPPER ABDOMEN: No free air under the diaphragm. IMPRESSION: Bilateral mid to lower lung field airspace opacities, increased from prior exam, concerning for multifocal pneumonia. Signed by: Dr. Marty Hernandez MD on 01/26/2020 9:10 AM
[2020-01-26 09:18] LABS: ALANINE AMINOTRANSFERASE 77 IU/L (0-55); ALBUMIN 3.5 g/dL (3.5-5.0); ALBUMIN/GLOBULIN RATIO 0.8 (0.8-2.0); ALKALINE PHOSPHATASE 78 IU/L (40-150); ANION GAP 15.2 mmol/L (8-16); BLOOD UREA NITROGEN 18 mg/dL (7-26); BUN/CREATININE RATIO 22 (6-25); CARBON DIOXIDE 26 mmol/L (22-29); CHLORIDE 104 mmol/L (98-107); CREATININE, SERUM 0.81 mg/dL (0.57-1.11); EST GLOMERULAR FILTRATION RATE > 60 ML/MIN (60-); GLUCOSE 137 mg/dL (74-118); POTASSIUM 4.2 mmol/L (3.5-5.1); SODIUM 141 mmol/L (136-145)
[2020-01-26 10:06] LABS: CREATINE KINASE 29 IU/L (29-168)
--- NOTE | 2020-01-26 11:00 | NUR ---
ambulated patient in room on room air. o2 sats maintained between 92 and 97% Addendum: 01/26/20 at 1145 by JHON ambulated patient in room on room air. o2 sats maintained between 92 and 97%. pt observed to have resp 26 and reports feeling out of breath.
[2020-01-26] MEDS: AZITHROMYCIN 500MG/SOD CHL 0.9% 250ML BAG IV SCH (13:30)
[2020-01-26 17:05] VITALS: BP 130/74
--- NOTE | 2020-01-26 17:05 | NUR ---
Received patient from ER. On droplet precaution. O2 at 2LNC in placed. Awake, alert and oriented x4. Call light in reach. Patient gets SOB with exertion.
[2020-01-26 17:18] VITALS: BP 130/74
[2020-01-26] MEDS ORDERED: ACETAMINOPHEN/CODEINE 300MG - 30MG TAB PO PRN (18:00)
[2020-01-26] MEDS ORDERED: ONDANSETRON HCL INJ 2MG/ML 2ML 2 MG/ML VIAL IV PRN (18:00)
[2020-01-26] MEDS ORDERED: HYDRALAZINE HCL 20 MG/ML VIAL IV PRN (18:00)
--- NOTE | 2020-01-26 18:00 | NUR ---
Notified Dr. Vivar and Dr. Carty for consultation. Spoke with them over the phone.
--- NOTE | 2020-01-26 19:00 | NUR ---
Report given to money manager. On droplet precaution. O2 2L via NC in placed. Call light in reach.
[2020-01-26] MEDS: CEFTRIAXONE SOD 1 GM/NS 50 ML 50 ML IV SCH (19:16)
--- NOTE | 2020-01-26 19:41 | NUR ---
pulmonary [id number]
[2020-01-26] MEDS ORDERED: METHYLPREDNISOLONE SOD SUCC 125 MG/2ML VIAL IV NR (19:45)
[2020-01-26 20:00] VITALS: BP 140/75
[2020-01-26] MEDS ORDERED: VANCOMYCIN 1GM/NS 250 ML 250 ML IV ONE (20:00)
[2020-01-26] MEDS: ACETAMINOPHEN 325 MG TAB PO PRN (20:38)
[2020-01-26] MEDS ORDERED: MELATONIN 5 MG TABLET PO PRN (21:00)
--- NOTE | 2020-01-26 21:01 | Consultation ---
DATE OF CONSULTATION: 01/26/2020 Pulmonary Medicine Consult HISTORY OF PRESENT ILLNESS: Ms. Aguilar is a pleasant 49-year-old female, who presented to [facility] on January 26, 2020. The patient with dyspnea. The patient with increasing shortness of breath and having trouble mobilizing within her own house. Normally, she is a very healthy person despite her baseline asthma. When she comes to the emergency room with the pattern of worsening, oxygen saturations 92%, she is given oxygen. This is the worst breathing crisis she has ever had. She has some mild sinus congestion, but no throat pain. No myalgias. Heart rate was 120 in the emergency room with blood pressure 158/108. The patient with white blood count of 17,000, lymphocyte percent of 4.4% or 0.7 per micro mm3. The patient's LFT slightly increased, where AST 81 and ALT 77. Ferritin 1827. Of note, the patient had come to the emergency room just 5 days prior and was attempted on outpatient followup, but due to a pattern of worsening at this time she was admitted. Chest x-ray suggesting multifocal pneumonia. MEDICAL HISTORY: The patient with asthma diagnosed at age 38, on Symbicort, ProAir, Spiriva, all p.r.n. a few times a month. No history of hospitalizations due to breathing condition. ALLERGIES: SINGULAIR, PROCHLORPERAZINE, TAMSULOSIN, VENLAFAXINE. SOCIAL HISTORY: No smoking. No drinking. No drugs. 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 She usually does 40 hours a week, but has been doing 60 hours a week due to increased volume recently for three weeks. She lives with her son whose age is 30, who is working and her daughter whose age is 19, who gets out a lot. FAMILY HISTORY: Noncontributory to this condition. REVIEW OF SYSTEMS: GENERAL: No chronic weight changes. OPHTHALMOLOGIC: No exophthalmos. ENT: No bloody nose. ENDOCRINE: No known thyroid condition. PULMONARY: No blood in cough. CARDIOVASCULAR: No LA. GI: No constipation. : No blood in urine. DERMATOLOGIC: No rash. NEUROLOGIC: No stroke. PSYCHIATRIC: No depression. OBJECTIVE: VITAL SIGNS: Afebrile. Vital signs noted and reviewed per the chart record, notably with mild tachycardia. GENERAL: She looks pale, in bed, mild increased work of breathing. HEENT: Normocephalic atraumatic. NECK: Supple. Throat midline. LUNGS: Bilateral air entry with rare rhonchi, decreased breath sounds noted. CARDIOVASCULAR: S1, S2. No murmurs, rubs, or gallops. ABDOMEN: Soft, nontender. EXTREMITIES: No clubbing, no cyanosis, no edema. INTEGUMENT: No rash or purpura. NEUROLOGIC: Nonfocal. Moves all four extremities. LABORATORY DATA: White count 15.7, 36 hematocrit 36, and 273,000 platelets. A 4.2 potassium, 18 BUN, 0.8 creatinine. Glucose 137. Ferritin 1827. AST 81 and ALT 77. CK 29. Total protein 7.7, albumin 3.5. Influenza antigen swab negative. IMPRESSION: 1. Multifocal pneumonia. 2. Mild acute hepatitis, possible associated with viral infection. 3. Asthma with exacerbation. 4. Chronic mild allergies. 5. Elevated . PLAN: Follow up serial viral markers of inflammation. [place] nasal spray for any nasal sinus congestion. BNP level was already normal follow fluid status clinically. Followup hemodynamics and get partially . Check coronavirus test, Some steriods for asthma exacerbation and bronchodilators. Thank you very much, Dr. Luevano for this consult. Please call for questions. MD AYDEN Bryant/RUIZL /[id number]
--- NOTE | 2020-01-26 22:00 | NUR ---
patient seen during routine monitoring with labored breating RR 28, Sp02@82%, RT dept contacted advisd to place patient on non-rebreather at 8liter oxygen rate, patient tolerated intervention well, SP02@95% currently HR 125, remains on telemetry
[2020-01-26 22:08] LABS: BILIRUBIN,URINE NEGATIVE (NEGATIVE); CLARITY,URINE CLOUDY (CLEAR); COLOR,URINE YELLOW (YELLOW); KETONES,URINE NEGATIVE (NEGATIVE); LEUKOCYTE ESTERASE ,URINE NEGATIVE (NEGATIVE); NITRITE,URINE NEGATIVE (NEGATIVE); PROTEIN,URINE DIPSTICK 2+ (NEGATIVE)
[2020-01-26 22:14] LABS: BACTERIA,URINE MODERATE /HPF; EPITHELIAL CELLS,URINE FEW /LPF; RBC,URINE >50 /HPF (0-5)
[2020-01-26] MEDS: ALBUTEROL SULFATE HFA 8GM INHALATION AEROSOL INH SCH (23:00)
--- NOTE | 2020-01-26 23:02 | NUR ---
patient remain febrile, HOISTING MACHINE OPERATOR mana notified that patent temp remain at 101.4 after one dose of PRN PO tylenol, requested IV fluids to aid in hyperthermia, she stated "She dont need fluids, place ice pack to cool her down", cooling measure started on patient to decrease fever
[2020-01-27] VITALS (9 sets, daily range): BP systolic 113–142; BP diastolic 56–74
--- NOTE | 2020-01-27 00:40 | NUR ---
REASSESSMENT OF VITALS,PATIENT TEMP DECREAED, RESTING COMFORTABLY NO DISTRESS NOTED, REMAIN ON NON-REBREATHER AT 8L PER NASAL CANNULA, PATIENT STATES " I FEEL ALOT BETTER", BED IN LOWEST POSITION, CALL LIGHT WITHIN REACH
[2020-01-27] MEDS ORDERED: GABAPENTIN100 MG (01:41)
[2020-01-27] MEDS ORDERED: VITAMIN D2400 UNIT PO (01:41)
[2020-01-27] MEDS ORDERED: VASCEPA0.5 GM (01:41)
[2020-01-27] MEDS ORDERED: POTASSIUM CHLO10 ME1 PO (01:41)
[2020-01-27] MEDS ORDERED: FERROUS SULFAT325 MG PO (01:41)
[2020-01-27] MEDS ORDERED: MONTELUKAST SOD10 MG PO (01:41)
[2020-01-27] MEDS ORDERED: LOSARTAN POTASS25 MG PO (01:41)
[2020-01-27] MEDS ORDERED: CELEBREX100 MG PO (01:41)
[2020-01-27] MEDS ORDERED: PROAIR HFA INH8.5 GM (01:48)
[2020-01-27] MEDS ORDERED: SYMBICORT 80-10.2 GM INH (01:48)
[2020-01-27] MEDS: ALBUTEROL SULFATE HFA 8GM INHALATION AEROSOL INH SCH ×6 (02:33→23:00)
[2020-01-27] MEDS: ACETAMINOPHEN 325 MG TAB PO PRN ×3 (02:34→16:58)
[2020-01-27 05:22] LABS: BASOPHILS % 0.2 % (0.0-1.0); EOSINOPHILS % 0.1 % (0.0-6.0); HEMATOCRIT 31.8 % (34.2-44.1); HEMOGLOBIN 10.3 g/dL (12.0-16.0); LYMPHOCYTES # (AUTO) 1.3 (1.0-3.2); LYMPHOCYTES % 8.5 % (18.0-39.1); MEAN CORPUSCULAR HEMOGLOBIN 27.7 pg (28-32); MEAN CORPUSCULAR HGB CONC 32.4 g/dL (31-35); MEAN CORPUSCULAR VOLUME 85.5 fL (81-99); MONOCYTES # (AUTO) 0.2 (0.2-0.8); MONOCYTES % 1.5 % (4.4-11.3); NEUTROPHILS # (AUTO) 13.6 (2.1-6.9); NEUTROPHILS % 86.3 % (38.7-80.0); PLATELET COUNT 276 x10e3/uL (140-360); RED BLOOD COUNT 3.72 x10e6/uL (3.6-5.1); RED CELL DISTRIBUTION WIDTH 13.9 % (11.7-14.4)
[2020-01-27 05:47] LABS: ALANINE AMINOTRANSFERASE 98 IU/L (0-55); ALBUMIN 2.9 g/dL (3.5-5.0); ALBUMIN/GLOBULIN RATIO 0.7 (0.8-2.0); ALKALINE PHOSPHATASE 78 IU/L (40-150); ANION GAP 15.1 mmol/L (8-16); BLOOD UREA NITROGEN 16 mg/dL (7-26); BUN/CREATININE RATIO 21 (6-25); CALCIUM 9.3 mg/dL (8.4-10.2); CARBON DIOXIDE 25 mmol/L (22-29); CHLORIDE 105 mmol/L (98-107); CREATININE, SERUM 0.75 mg/dL (0.57-1.11); EST GLOMERULAR FILTRATION RATE > 60 ML/MIN (60-); GLUCOSE 98 mg/dL (74-118); MAGNESIUM 1.8 MG/DL (1.3-2.1); POTASSIUM 4.1 mmol/L (3.5-5.1); SODIUM 141 mmol/L (136-145)
[2020-01-27 06:09] LABS: THYROID STIMULATING HORMONE 0.574 uIU/mL (0.350-4.940)
[2020-01-27 06:11] LABS: HIV 1&2 AB SCREEN NON-REACTIVE (NONREACTIVE)
--- NOTE | 2020-01-27 07:18 | NUR ---
BSSR GIVEN TO MARIAA RN, PATIENT AWAKE ALERT, NO DISTRESS, VSS, REMAIN ON DROPLET/CONTACT ISOLATION, PENDING LABS WITH MORNING, CALL LIGHT WITHIN REACH, RN EXT NUMBER GIVEN TO PATIENT VERBALLY AND PLACE ON BOARD
[2020-01-27 07:20] LABS: LYMPHOCYTES % (MANUAL) 10 % (19-48); MONOCYTES % (MANUAL) 3 % (3.4-9.0); NEUTROPHILS % (MANUAL) 87 % (40-74)
[2020-01-27 07:22] LABS: PLATELET ESTIMATE ADEQUATE; PLATELET MORPHOLOGY COMMENT NORMAL; RBC MORPHOLOGY COMMENT NORMAL
[2020-01-27] MEDS: SALINE 0.65% NAS SOLN 1 SPRAY BTL SCH ×2 (09:12→16:58)
[2020-01-27] MEDS: GUAIFENESIN 600MG/DEXTROMETHORPHAN 30MG TABSR PO PRN (09:46)
--- NOTE | 2020-01-27 10:24 | Diagnostic Imaging Report ---
Chest, 1 view, 01/27/2020. History: Pneumonia. Comparison: 01/26/2020. Findings: The cardiac silhouette is unchanged. Patchy bilateral alveolar opacities are present partially obscuring both hemidiaphragms. There are no acute osseous or soft tissue abnormalities. Impression: Bilateral pulmonary opacities consistent with pneumonia, without significant change. Signed by: Arian Gillis on 01/27/2020 10:20 AM
--- NOTE | 2020-01-27 13:01 | NUR ---
patient up in bed with non breather mask ON, still c/o mild sob, not in any distress, Dr Carty and Dr Vivar had rounds. no new orders
--- NOTE | 2020-01-27 13:06 | Progress Note ---
DATE: 01/25/2020 The patient, who is having severe cough today, but clinically she said feeling better. There is no fever. No chills. Discussed with the medical team. Discussed with the patient. We will consult Pulmonary. PHYSICAL EXAMINATION: GENERAL: He is currently alert and oriented. VITAL SIGNS: Stable. Afebrile. HEENT: She is not icteric. NECK: Supple. CHEST: Few wheezing. COR: S1 and S2. No S3, S4, or murmur. ABDOMEN: Soft. IMPRESSION: Cough, recurrent, asthma, concern sleep apnea. Discussed with Pulmonary. Discussed with Critical Care. COVID-19 testing was negative. Discussed with the patient. MD MELISSA Mccarthy/EVARISTO /[id number]
--- NOTE | 2020-01-27 13:31 | NUR ---
Pulmonary Medicine DATE 01/27/2020 SUBJECTIVE: Better mildly eating < 1/2 CXR with bilateral pneumonia, no change NRB mask, 95% saturation REVIEW OF SYSTEMS: no headaches, no rash OBJECTIVE: VITAL SIGNS: Vital signs noted and reviewed per the chart record. Mild tachycardia GENERAL: In bed, pale. mild increased work of breathing. HEENT: Normocephalic atraumatic. NECK: Supple. Throat midline. LUNGS: Bilateral air entry with rare rhonchi, decreased breath sounds noted. CARDIOVASCULAR: S1, S2. No murmurs, rubs, or gallops. ABDOMEN: Soft, nontender. EXTREMITIES: No clubbing, no cyanosis, no edema. INTEGUMENT: No rash or purpura. NEUROLOGIC: Nonfocal. Moves all four extremities. LABORATORY DATA: k 4.1, cr 0.76. wbc 16, plt 32, plt 276 IMPRESSION: 1. Multifocal pneumonia. 2. Mild acute hepatitis, possibly associated with viral infection. 3. Asthma with exacerbation. 4. Chronic mild allergies. 5. Leucocytosis PLAN: Oxygen per protocol follow fluid status Follow up COVID 19 test Some steroids for asthma exacerbation-- will redose if needed Bronchodilators. Thank you very much, Dr. Luevano for this consult. Please call for questions.
[2020-01-27] MEDS: AZITHROMYCIN 500MG/SOD CHL 0.9% 250ML BAG IV SCH (13:33)
[2020-01-27] MEDS: ENOXAPARIN SOD INJ 40 MG/0.4 ML SYR SC SCH (16:58)
[2020-01-27] MEDS: GABAPENTIN 100 MG CAP PO SCH ×2 (16:58→21:00)
--- NOTE | 2020-01-27 17:10 | NUR ---
received report from CHENCHO Guzmán and assumed care of the patient for the remainder of shift.
[2020-01-27] MEDS: CEFTRIAXONE SOD 1 GM/NS 50 ML 50 ML IV SCH (18:06)
--- NOTE | 2020-01-27 19:30 | NUR ---
Nursing shift report received from morning nurse. Pt alert and oriented. Denies pain at this time. Informed to call on phone for assistance.
--- NOTE | 2020-01-27 21:15 | NUR ---
Mild Temp 100.6, admin prn Tylenol, nonrebreather O2 @5L, sat 96%, c/o SOB after exertion using BS commode, stable after a couple minutes in bed taking slow breathes.
--- NOTE | 2020-01-27 21:20 | NUR ---
Spoke with Dr. Vivar regarding alert with SIRS, RR30, Temp 100.6, no further orders. Dr. Vivar ordered to continue with current plan of care.
[2020-01-28] VITALS (8 sets, daily range): BP systolic 115–141; BP diastolic 69–80
[2020-01-28] MEDS: ALBUTEROL SULFATE HFA 8GM INHALATION AEROSOL INH SCH ×6 (03:00→23:50)
--- NOTE | 2020-01-28 06:00 | NUR ---
0445 x2 attempts to draw labs unable to obtain blood, Pt c/o pain at site, no swelling noted, pressure applied to stop bleeding. 0545 charge nurse x2 attempts jodee labs x2 tubes, Pt moaning and facial grimacing. No acute distress noted.
[2020-01-28 06:28] LABS: BASOPHILS % 0.3 % (0.0-1.0); EOSINOPHILS % 0.1 % (0.0-6.0); HEMATOCRIT 33.9 % (34.2-44.1); HEMOGLOBIN 10.8 g/dL (12.0-16.0); LYMPHOCYTES # (AUTO) 1.5 (1.0-3.2); LYMPHOCYTES % 12.4 % (18.0-39.1); MEAN CORPUSCULAR HEMOGLOBIN 27.3 pg (28-32); MEAN CORPUSCULAR HGB CONC 31.9 g/dL (31-35); MEAN CORPUSCULAR VOLUME 85.6 fL (81-99); MONOCYTES # (AUTO) 0.2 (0.2-0.8); MONOCYTES % 1.5 % (4.4-11.3); NEUTROPHILS % 80.9 % (38.7-80.0); PLATELET COUNT 320 x10e3/uL (140-360); RED BLOOD COUNT 3.96 x10e6/uL (3.6-5.1); RED CELL DISTRIBUTION WIDTH 13.9 % (11.7-14.4)
[2020-01-28 06:52] LABS: ANION GAP 15.9 mmol/L (8-16); BLOOD UREA NITROGEN 12 mg/dL (7-26); BUN/CREATININE RATIO 19 (6-25); CALCIUM 9.7 mg/dL (8.4-10.2); CARBON DIOXIDE 24 mmol/L (22-29); CHLORIDE 101 mmol/L (98-107); CREATININE, SERUM 0.64 mg/dL (0.57-1.11); EST GLOMERULAR FILTRATION RATE > 60 ML/MIN (60-); GLUCOSE 70 mg/dL (74-118); MAGNESIUM 1.8 MG/DL (1.3-2.1); POTASSIUM 3.9 mmol/L (3.5-5.1); SODIUM 137 mmol/L (136-145)
[2020-01-28] MEDS: SALINE 0.65% NAS SOLN 1 SPRAY BTL SCH ×2 (07:53→17:00)
[2020-01-28] MEDS: ACETAMINOPHEN 325 MG TAB PO PRN ×2 (07:59→18:53)
[2020-01-28] MEDS: GABAPENTIN 100 MG CAP PO SCH ×3 (07:59→20:35)
[2020-01-28] MEDS ORDERED: LOSARTAN POTASSIUM 25 MG TAB PO SCH (09:00)
[2020-01-28 10:15] LABS: BAND NEUTROPHILS % (MANUAL) 1 %; LYMPHOCYTES % (MANUAL) 13 % (19-48); MONOCYTES % (MANUAL) 1 % (3.4-9.0); NEUTROPHILS % (MANUAL) 83 % (40-74); PLATELET ESTIMATE ADEQUATE; PLATELET MORPHOLOGY COMMENT NORMAL; RBC MORPHOLOGY COMMENT NORMAL
--- NOTE | 2020-01-28 10:43 | NUR ---
Dr. Vivar at the bedside. no new orders. continue current care
--- NOTE | 2020-01-28 12:03 | NUR ---
Pulmonary Medicine DATE 01/28/2020 SUBJECTIVE: NRB mask fever x 1 ate some today subjectively feeling mildly better REVIEW OF SYSTEMS: no headaches, no rash OBJECTIVE: VITAL SIGNS: Vital signs noted and reviewed per the chart record. Mild tachycardia GENERAL: In bed, pale. mild increased work of breathing. HEENT: Normocephalic atraumatic. NECK: Supple. Throat midline. LUNGS: Bilateral air entry with rare rhonchi, decreased breath sounds noted. CARDIOVASCULAR: S1, S2. No murmurs, rubs, or gallops. ABDOMEN: Soft, nontender. EXTREMITIES: No clubbing, no cyanosis, no edema. INTEGUMENT: No rash or purpura. NEUROLOGIC: Nonfocal. Moves all four extremities. LABORATORY DATA: k 3.9, co 24, bun 12, cr 0.64 IMPRESSION: 1. Multifocal pneumonia. 2. Mild acute hepatitis, possibly associated with viral infection. 3. Asthma with exacerbation. 4. Chronic mild allergies. 5. Leucocytosis PLAN: Oxygen per protocol, NRB for now follow fluid status closely Follow up COVID 19 test Bed positioning maneuvers Some steroids for asthma exacerbation-- will redose if needed, limit otherwise Bronchodilators. DVT ppx Thank you very much, Dr. Luevano for this consult. Please call for questions.
--- NOTE | 2020-01-28 12:19 | Diagnostic Imaging Report ---
EXAMINATION: CHEST SINGLE (PORTABLE) INDICATION: Pneumonia COMPARISON: Chest radiograph 01/27/2020 FINDINGS: LINES/TUBES:EKG leads overlie the chest. LUNGS:The lung volumes remain low. Unchanged bilateral lower lung airspace opacities. PLEURA:No pleural effusion or pneumothorax. MEDIASTINUM:The cardiomediastinal silhouette appears unchanged in size and shape. BONES/SOFT TISSUES:No acute osseous injury. ABDOMEN:No free air under the diaphragm. IMPRESSION: Unchanged bilateral lower lung airspace opacities, consistent with pneumonia. Signed by: Leno Bright MD on 01/28/2020 12:15 PM
[2020-01-28] MEDS: AZITHROMYCIN 500MG/SOD CHL 0.9% 250ML BAG IV SCH (12:56)
[2020-01-28] MEDS: CEFTRIAXONE SOD 1 GM/NS 50 ML 50 ML IV SCH (18:00)
[2020-01-28] MEDS: ENOXAPARIN SOD INJ 40 MG/0.4 ML SYR SC SCH (18:52)
--- NOTE | 2020-01-28 20:31 | NUR ---
RECEIVED PT LAYING SEMI FOWLERS IN BED, AAOX3, RR NON-LABORED AT 32 RR/MIN, SPO2 AT 100% ON NON-REBREATHER AT 15L. PT ASSISTED TO BSC TO URINATE AND BACK TO BED. PT O2 DROPPED TO 77% WHILE STANDING AND TRANSFERRING, ENCOURAGED PT TO TAKE DEEP BREATHES, O2 FLUCTUATED FROM 77% TO 95% WHILE PATIENT MOVING AROUND, ONCE PATIENT BACK IN BED O2 INCREASED AND SUSTAINED AT 97%. LEFT PT LAYING SEMI FOWLERS IN BED, BED IN LOW LOCKED POSITION, SIDE RAILS UPX2, CALL LIGHT AND PHONE WITHIN REACH.
[2020-01-28] MEDS: GUAIFENESIN 600MG/DEXTROMETHORPHAN 30MG TABSR PO PRN (20:35)
--- NOTE | 2020-01-28 23:30 | NUR ---
RN PICC LINE TEAM AT BEDSIDE FOR PICC LINE INSERTION.
[2020-01-29] VITALS (8 sets, daily range): BP systolic 125–141; BP diastolic 64–79
--- NOTE | 2020-01-29 01:03 | Diagnostic Imaging Report ---
EXAMINATION: CHEST XRAY LINE PLACEMENT INDICATION: PICC line placement COMPARISON: Chest radiograph 01/28/2020. FINDINGS: TUBES and LINES: Interval placement of right arm PICC which terminates in the SVC. LUNGS: Low lung volumes. Unchanged bilateral mid and lower lung zone predominant airspace opacities. PLEURA: Possible trace left pleural effusion. No pneumothorax. HEART AND MEDIASTINUM: The cardiomediastinal silhouette is unremarkable. BONES AND SOFT TISSUES: No acute osseous lesion. Soft tissues are unremarkable. UPPER ABDOMEN: No free air under the diaphragm. IMPRESSION: Right arm PICC terminates in the SVC. No evidence of pneumothorax. Bilateral airspace opacities may represent multifocal pneumonia, possibly with superimposed pulmonary edema. Signed by: Dr. David Hernandez MD on 01/29/2020 1:00 AM
[2020-01-29] MEDS: CEFTRIAXONE SOD 1 GM/NS 50 ML 50 ML IV SCH ×2 (01:20→23:31)
[2020-01-29] MEDS: ALBUTEROL SULFATE HFA 8GM INHALATION AEROSOL INH SCH ×6 (03:55→23:29)
[2020-01-29 04:23] LABS: BASOPHILS # (AUTO) 0.1 (0.0-0.1); BASOPHILS % 0.4 % (0.0-1.0); EOSINOPHILS % 0.2 % (0.0-6.0); HEMATOCRIT 32.4 % (34.2-44.1); HEMOGLOBIN 10.5 g/dL (12.0-16.0); LYMPHOCYTES # (AUTO) 1.4 (1.0-3.2); LYMPHOCYTES % 12.7 % (18.0-39.1); MEAN CORPUSCULAR HEMOGLOBIN 27.7 pg (28-32); MEAN CORPUSCULAR HGB CONC 32.4 g/dL (31-35); MEAN CORPUSCULAR VOLUME 85.5 fL (81-99); MONOCYTES # (AUTO) 0.3 (0.2-0.8); MONOCYTES % 2.8 % (4.4-11.3); NEUTROPHILS # (AUTO) 8.8 (2.1-6.9); NEUTROPHILS % 78.4 % (38.7-80.0); PLATELET COUNT 332 x10e3/uL (140-360); RED BLOOD COUNT 3.79 x10e6/uL (3.6-5.1); RED CELL DISTRIBUTION WIDTH 13.8 % (11.7-14.4)
[2020-01-29 04:38] LABS: ANION GAP 16.7 mmol/L (8-16); BLOOD UREA NITROGEN 12 mg/dL (7-26); BUN/CREATININE RATIO 19 (6-25); CALCIUM 9.6 mg/dL (8.4-10.2); CARBON DIOXIDE 23 mmol/L (22-29); CHLORIDE 102 mmol/L (98-107); CREATININE, SERUM 0.64 mg/dL (0.57-1.11); EST GLOMERULAR FILTRATION RATE > 60 ML/MIN (60-); GLUCOSE 83 mg/dL (74-118); MAGNESIUM 1.8 MG/DL (1.3-2.1); POTASSIUM 3.7 mmol/L (3.5-5.1); SODIUM 138 mmol/L (136-145)
--- NOTE | 2020-01-29 07:00 | NUR ---
received bedside report. pt is sleeping, no s/s of distress. non-rebreather mask in place, O2 at 15L. call light within reach. spectra # on board
[2020-01-29] MEDS: GABAPENTIN 100 MG CAP PO SCH ×3 (08:15→20:47)
[2020-01-29] MEDS: SALINE 0.65% NAS SOLN 1 SPRAY BTL SCH ×2 (08:15→16:40)
[2020-01-29 08:34] LABS: BAND NEUTROPHILS % (MANUAL) 1 %; LYMPHOCYTES % (MANUAL) 12 % (19-48); MONOCYTES % (MANUAL) 1 % (3.4-9.0); MYELOCYTES % (MANUAL) 5 % (0-0); NEUTROPHILS % (MANUAL) 81 % (40-74); PLATELET ESTIMATE ADEQUATE; PLATELET MORPHOLOGY COMMENT NORMAL; RBC MORPHOLOGY COMMENT NORMAL
--- NOTE | 2020-01-29 11:49 | Progress Note ---
DATE: Ms. Aguilar remains short of breath. There are no new complaints. REVIEW OF SYSTEMS: HEENT: Negative. PULMONARY: There is some shortness of breath. LABORATORY DATA: Her blood cultures are negative. Her white count is down 11.9. Her COVID-19 is still pending. PHYSICAL EXAMINATION: GENERAL: She is currently alert, oriented. VITAL SIGNS: Stable, currently afebrile. HEENT: Not icteric. NECK: Supple. CHEST: Few crackles bilateral. COR: S1, S2. No S3, S4, or murmur. ABDOMEN: Soft. Bowel sounds present. No tenderness. EXTREMITIES: No edema. SKIN: No rash. IMPRESSION: Community-acquired pneumonia, concerned about COVID. Keep on isolation. Continue with Rocephin and azithromycin. We will add steroid. We will discuss with Pulmonary. We will follow. MD MELISSA Mccarthy/EVARISTO /[id number]
--- NOTE | 2020-01-29 12:05 | Progress Note ---
DATE: 01/28/2020 This is a late entry. The patient was seen on January 28, 2020. However, I do not see my note, so I am dictating it. SUBJECTIVE: The patient was seen and examined. Chart reviewed. The patient continued to have shortness of breath. There is no fever. She remains on oxygen. Her laboratory data reviewed. We are still waiting for COVID-19. PHYSICAL EXAMINATION: GENERAL: She is currently alert, comfortable. VITAL SIGNS: Stable, currently afebrile. HEENT: Not icteric. NECK: Supple. CHEST: Few crackles. COR: S1, S2. ABDOMEN: Soft. Bowel sounds present. No tenderness. EXTREMITIES: No edema. SKIN: No rash. IMPRESSION: 1. Chronic obstructive pulmonary disease exacerbation. 2. Atypical pneumonia, concerned about COVID-19. PLAN: The plan is to continue with droplet isolation. Continue Rocephin and azithromycin. Continue supportive care. We will follow. MD MELISSA Mccarthy/EVARISTO /[id number]
[2020-01-29] MEDS: AZITHROMYCIN 500MG/NS 250 ML 250 ML IV SCH (12:10)
--- NOTE | 2020-01-29 13:57 | NUR ---
Pulmonary Medicine DATE 01/29/2020 SUBJECTIVE: 99% saturation NRB FiO2 possible mild improvement? patient is quite SOB to bedside commode sputum culture - respiratory shanice REVIEW OF SYSTEMS: no headaches, no rash OBJECTIVE: VITAL SIGNS: Vital signs noted and reviewed per the chart record. Mild tachycardia GENERAL: In bed, pale. mild increased work of breathing. HEENT: Normocephalic atraumatic. NECK: Supple. Throat midline. LUNGS: Bilateral air entry with rare rhonchi, decreased breath sounds noted. CARDIOVASCULAR: S1, S2. No murmurs, rubs, or gallops. ABDOMEN: Soft, nontender. EXTREMITIES: No clubbing, no cyanosis, no edema. INTEGUMENT: No rash or purpura. NEUROLOGIC: Nonfocal. Moves all four extremities. LABORATORY DATA: k 3.7, cr 0.64. wbc 11, hct 32, plt 332 IMPRESSION: 1. Multifocal pneumonia. 2. Mild acute hepatitis, possibly associated with viral infection. 3. Asthma with exacerbation. 4. Chronic mild allergies. 5. Leucocytosis PLAN: Oxygen per protocol, NRB for now --wean as tolerated Follow fluid status closely Follow up COVID 19 test Bed positioning maneuvers Some steroids for asthma exacerbation-- will redose if needed, limit otherwise Bronchodilators. DVT ppx Thank you very much, Dr. Luevano for this consult. Please call for questions.
--- NOTE | 2020-01-29 15:08 | NUR ---
provided patient with specimen cup for urine collection.
[2020-01-29] MEDS: ENOXAPARIN SOD INJ 40 MG/0.4 ML SYR SC SCH (17:15)
--- NOTE | 2020-01-29 18:00 | Diagnostic Imaging Report ---
EXAMINATION: CHEST SINGLE (PORTABLE) INDICATION: ^pna, f/u COVID COMPARISON: Chest radiograph 01/28/2020 FINDINGS: AP view TUBES and LINES: Stable right PICC with tip overlying the cavoatrial junction. LUNGS: Lungs are well inflated. Unchanged bilateral multifocal consolidations. PLEURA: No pleural effusion or pneumothorax. HEART AND MEDIASTINUM: The cardiomediastinal silhouette is unremarkable. BONES AND SOFT TISSUES: No acute osseous lesion. Soft tissues are unremarkable. UPPER ABDOMEN: No free air under the diaphragm. IMPRESSION: Stable multifocal bilateral consolidations consistent with Covid-19 pneumonia. Signed by: Dr. Celsa Cannon M.D. on 01/29/2020 5:56 PM
[2020-01-29] MEDS: ACETAMINOPHEN 325 MG TAB PO PRN (18:22)
[2020-01-29 18:29] LABS: CLARITY,URINE CLEAR (CLEAR); COLOR,URINE YELLOW (YELLOW); LEUKOCYTE ESTERASE ,URINE NEGATIVE (NEGATIVE); NITRITE,URINE NEGATIVE (NEGATIVE); PROTEIN,URINE DIPSTICK 2+ (NEGATIVE)
[2020-01-29 18:30] LABS: BILIRUBIN,URINE SMALL (NEGATIVE); KETONES,URINE 3+ (NEGATIVE); URINE UROBILINOGEN 0.2 mg/dL (0.2 - 1)
[2020-01-29 18:33] LABS: RBC,URINE 0-5 /HPF (0-5); WBC,URINE (MAN) 0-5 /HPF (0-5)
[2020-01-29 18:34] LABS: BACTERIA,URINE RARE /HPF; EPITHELIAL CELLS,URINE MANY /LPF
[2020-01-30] VITALS (8 sets, daily range): BP systolic 118–133; BP diastolic 60–76
[2020-01-30] MEDS: ALBUTEROL SULFATE HFA 8GM INHALATION AEROSOL INH SCH ×6 (03:09→23:32)
[2020-01-30] MEDS: ACETAMINOPHEN 325 MG TAB PO PRN ×2 (04:55→06:43)
[2020-01-30 05:38] LABS: BASOPHILS % 0.3 % (0.0-1.0); EOSINOPHILS # (AUTO) 0.1 (0.0-0.4); EOSINOPHILS % 0.4 % (0.0-6.0); HEMATOCRIT 33.1 % (34.2-44.1); HEMOGLOBIN 10.7 g/dL (12.0-16.0); LYMPHOCYTES # (AUTO) 1.3 (1.0-3.2); LYMPHOCYTES % 9.5 % (18.0-39.1); MEAN CORPUSCULAR HEMOGLOBIN 27.3 pg (28-32); MEAN CORPUSCULAR HGB CONC 32.3 g/dL (31-35); MEAN CORPUSCULAR VOLUME 84.4 fL (81-99); MONOCYTES # (AUTO) 0.3 (0.2-0.8); MONOCYTES % 2.4 % (4.4-11.3); NEUTROPHILS % 82.3 % (38.7-80.0); PLATELET COUNT 332 x10e3/uL (140-360); RED BLOOD COUNT 3.92 x10e6/uL (3.6-5.1); RED CELL DISTRIBUTION WIDTH 13.7 % (11.7-14.4)
[2020-01-30 05:55] LABS: ANION GAP 15.5 mmol/L (8-16); BLOOD UREA NITROGEN 11 mg/dL (7-26); BUN/CREATININE RATIO 17 (6-25); CALCIUM 9.5 mg/dL (8.4-10.2); CARBON DIOXIDE 24 mmol/L (22-29); CHLORIDE 100 mmol/L (98-107); CREATININE, SERUM 0.65 mg/dL (0.57-1.11); EST GLOMERULAR FILTRATION RATE > 60 ML/MIN (60-); GLUCOSE 102 mg/dL (74-118); MAGNESIUM 1.9 MG/DL (1.3-2.1); POTASSIUM 3.5 mmol/L (3.5-5.1); SODIUM 136 mmol/L (136-145)
--- NOTE | 2020-01-30 06:48 | NUR ---
Notified Dr. Vivar, Dr. Carty, and PAC Anuel of pts covid-19 test results. Awaiting for call back from Dr. Carty, all others spoke with and verbalized test result. Will pass information on to day shift RN.
[2020-01-30 07:52] LABS: LYMPHOCYTES % (MANUAL) 14 % (19-48); MONOCYTES % (MANUAL) 2 % (3.4-9.0); MYELOCYTES % (MANUAL) 1 % (0-0); NEUTROPHILS % (MANUAL) 83 % (40-74)
[2020-01-30 07:53] LABS: PLATELET ESTIMATE ADEQUATE; PLATELET MORPHOLOGY COMMENT NORMAL; RBC MORPHOLOGY COMMENT NORMAL
[2020-01-30] MEDS: GABAPENTIN 100 MG CAP PO SCH ×3 (08:57→23:32)
[2020-01-30] MEDS: GUAIFENESIN 600MG/DEXTROMETHORPHAN 30MG TABSR PO PRN (08:57)
[2020-01-30] MEDS: SALINE 0.65% NAS SOLN 1 SPRAY BTL SCH ×2 (08:57→17:08)
--- NOTE | 2020-01-30 11:00 | Progress Note ---
DATE: SUBJECTIVE: Ms. Judith Aguilar remains in telemetry; on high oxygen; short of breath, but stable. The patient COVID-19 came back positive. PHYSICAL EXAMINATION: GENERAL: She is currently alert. VITAL SIGNS: Stable, currently afebrile. HEENT: Not icteric. NECK: Supple. CHEST: Crackles. COR: . ABDOMEN: Soft. IMPRESSION: 1. COVID-19 present on admission. 2. Community-acquired pneumonia. PLAN: Continue Rocephin. Continue azithromycin. Continue to meet her oxygenation demand. Remains to be watched closely. We will follow closely. MD MELISSA Mccarthy/MODL /[id number]
--- NOTE | 2020-01-30 13:14 | NUR ---
Pulmonary Medicine DATE 01/30/2020 SUBJECTIVE: sob on moving to BSC or turning in bed eating little coughing with mild production of phlegm NRB (+) REVIEW OF SYSTEMS: no headaches, no rash OBJECTIVE: VITAL SIGNS: Vital signs noted and reviewed per the chart record. GENERAL: In bed, pale. NAD however HEENT: Normocephalic atraumatic. NECK: Supple. Throat midline. LUNGS: Bilateral air entry with rare rhonchi, decreased breath sounds noted. CARDIOVASCULAR: S1, S2. No murmurs, rubs, or gallops. ABDOMEN: Soft, nontender. EXTREMITIES: No clubbing, no cyanosis, no edema. INTEGUMENT: No rash or purpura. NEUROLOGIC: Nonfocal. Moves all four extremities. LABORATORY DATA: k 3.5, cr 0.66. wbc 13. hct 33, plt 332 IMPRESSION: 1. Multifocal pneumonia, COVID 19. 2. Mild acute hepatitis, due to viral infection. 3. Asthma with exacerbation. 4. Chronic mild allergies. 5. Leucocytosis PLAN: Oxygen per protocol, NRB for now --wean as tolerated Follow fluid status closely Bed positioning maneuvers Some steroids for asthma exacerbation-- will redose if needed, limit otherwise Bronchodilators. DVT ppx Thank you very much, Dr. Luevano for this consult. Please call for questions.
[2020-01-30] MEDS: AZITHROMYCIN 500MG/NS 250 ML 250 ML IV SCH (13:45)
[2020-01-30] MEDS ORDERED: POTASSIUM CHLORIDE 20 MEQ TAB CR PO ONE (14:30)
[2020-01-30] MEDS: ENOXAPARIN SOD INJ 40 MG/0.4 ML SYR SC SCH (17:00)
[2020-01-31] VITALS (7 sets, daily range): BP systolic 108–136; BP diastolic 66–84
[2020-01-31] MEDS: CEFTRIAXONE SOD 1 GM/NS 50 ML 50 ML IV SCH (00:21)
[2020-01-31] MEDS: ALBUTEROL SULFATE HFA 8GM INHALATION AEROSOL INH SCH ×6 (03:57→23:00)
[2020-01-31] MEDS: ACETAMINOPHEN 325 MG TAB PO PRN (04:35)
[2020-01-31 05:07] LABS: BASOPHILS % 0.1 % (0.0-1.0); EOSINOPHILS # (AUTO) 0.1 (0.0-0.4); EOSINOPHILS % 0.9 % (0.0-6.0); HEMATOCRIT 32.8 % (34.2-44.1); HEMOGLOBIN 10.7 g/dL (12.0-16.0); LYMPHOCYTES # (AUTO) 1.4 (1.0-3.2); LYMPHOCYTES % 10.4 % (18.0-39.1); MEAN CORPUSCULAR HEMOGLOBIN 27.2 pg (28-32); MEAN CORPUSCULAR HGB CONC 32.6 g/dL (31-35); MEAN CORPUSCULAR VOLUME 83.2 fL (81-99); MONOCYTES # (AUTO) 0.3 (0.2-0.8); MONOCYTES % 2.3 % (4.4-11.3); NEUTROPHILS # (AUTO) 11.2 (2.1-6.9); NEUTROPHILS % 82.3 % (38.7-80.0); PLATELET COUNT 275 x10e3/uL (140-360); RED BLOOD COUNT 3.94 x10e6/uL (3.6-5.1); RED CELL DISTRIBUTION WIDTH 13.2 % (11.7-14.4)
[2020-01-31 05:22] LABS: BLOOD UREA NITROGEN 9 mg/dL (7-26); BUN/CREATININE RATIO 14 (6-25); CALCIUM 9.3 mg/dL (8.4-10.2); CARBON DIOXIDE 25 mmol/L (22-29); CHLORIDE 99 mmol/L (98-107); CREATININE, SERUM 0.65 mg/dL (0.57-1.11); EST GLOMERULAR FILTRATION RATE > 60 ML/MIN (60-); GLUCOSE 103 mg/dL (74-118); SODIUM 136 mmol/L (136-145)
--- NOTE | 2020-01-31 08:00 | NUR ---
patient placed on venti mask at 50%. o2 sat currently 98%. patient complains of no worsening shortness of breath or difficulty breathing. working with respiratory to wean down WCTM.
--- NOTE | 2020-01-31 08:37 | NUR ---
patient doing well on venti mask @ 50%. complains of no shortness of breath. o2 saturation 98%.
--- NOTE | 2020-01-31 09:14 | NUR ---
ASSESSMENT: Spiritual concern Telephonic visit. Pt worried about illness and family. Pt requested prayer. Intervention: Provided calming pastoral support and empathic listening. Provided prayer and information on how to reach bandage maker, if needed. Outcome: Pt expressed appreciation for visit. No need to follow at this time. ERIN GROSS Paint Coating Machine Operator Spiritual Care Department O: [phone]
[2020-01-31] MEDS: SALINE 0.65% NAS SOLN 1 SPRAY BTL SCH ×2 (09:37→17:31)
[2020-01-31] MEDS: GABAPENTIN 100 MG CAP PO SCH ×3 (09:37→21:00)
[2020-01-31] MEDS: GUAIFENESIN 600MG/DEXTROMETHORPHAN 30MG TABSR PO PRN ×2 (09:37→18:30)
--- NOTE | 2020-01-31 09:38 | NUR ---
dr. ray updated on patient respiratory effort and saturations. patient resting in bed on venti @ 50%. states she does not feel short of breath and is doing fine. TM.
[2020-01-31] MEDS: AZITHROMYCIN 500MG/NS 250 ML 250 ML IV SCH (13:23)
--- NOTE | 2020-01-31 14:00 | NUR ---
patient placed on 40% venti mask. states she is breathing fine. o2 saturation- 97%. appears in no distress. wctm.
--- NOTE | 2020-01-31 14:00 | Progress Note ---
DATE: SUBJECTIVE: Ms. Aguilar is feeling better today. Her breathing is better. She was able to leave the bed to the bedside commode without assist OBJECTIVE: VITAL SIGNS: Her vitals seem to be stable. Temperature still 101.7. HEENT: She is not icteric. NECK: Supple. CHEST: Few crackles. COR: S1 and S2. No S3, S4, or murmur. ABDOMEN: Soft. IMPRESSION: COVID-19 pneumonia, still with fever, still hypoxemic, but slowly getting better. Continue with the same supportive care, maybe there is a bacterial component. The patient is on Rocephin and azithromycin. PLAN: Is to continue with supportive care. Remains in the hospital. MD MELISSA Mccarthy/EVARISTO /[id number]
--- NOTE | 2020-01-31 16:31 | Diagnostic Imaging Report ---
EXAM: CHEST SINGLE (PORTABLE) DATE: 01/31/2020 11:46 AM INDICATION: Viral pneumonia follow-up COMPARISON: 01/29/2020 FINDINGS: Right-sided PICC line identified in stable position. Again identified are patchy bilateral airspace opacities, unchanged from the prior examination. There is no evidence for pneumothorax or significant pleural effusion. The cardiomediastinal silhouette is stable in appearance. No acute osseous abnormality is identified. IMPRESSION: No significant interval change from 01/29/2020. Patchy bilateral airspace opacities again identified suggestive of a atypical infectious/viral pneumonitis or multifocal pneumonia. Signed by: Dr. Alfa Delaney MD on 01/31/2020 4:27 PM
[2020-01-31] MEDS: ENOXAPARIN SOD INJ 40 MG/0.4 ML SYR SC SCH (17:00)
--- NOTE | 2020-01-31 18:04 | NUR ---
Pulmonary attending I saw and examined the patient on 01/31/20 with Christina Yoon NP. I agree with her findings. On 40% venti mask-- better follow up on supportive therapy. hopefully she is turning the corner, but there will remain risk for cardiovascular and hematologic complications
--- NOTE | 2020-01-31 18:51 | NUR ---
assisted to bsc for bowel movement. after getting back to bed, patient does appear to be breathing harder as it is a little more difficult, but does recover and catch her breath within one minute. o2 does remain above 92%. wctm.
--- NOTE | 2020-01-31 19:50 | NUR ---
Spoke with Dr. Vivar informed Pt c/o unable to breathe d/t congested nasal passage, ordered Afrin nasal spray x1 each nostril BID x3 days.
--- NOTE | 2020-01-31 20:30 | NUR ---
Pt received lying in bed, HOB 75 degrees. Pt denies pain at this time. venturi mask @40%, o2 sat 95. Bed low and locked. Informed to call on bedside phone for assistance. Addendum: 02/02/20 at 0038 by Favian Arriaga RN date 02/01/20
[2020-01-31] MEDS: OXYMETAZOLINE HCL 0.05% NAS 1 SPRAY BTL SCH (21:00)
--- NOTE | 2020-01-31 21:20 | NUR ---
Pt lying in bed, HOB 75 degrees. Pt denies pain at this time. Educated on Afrin nasal spray usage. Bed low and locked. Informed to call on bedside phone for assistance.
[2020-02-01] VITALS (8 sets, daily range): BP systolic 116–131; BP diastolic 64–81
[2020-02-01] MEDS: CEFTRIAXONE SOD 1 GM/NS 50 ML 50 ML IV SCH
--- NOTE | 2020-02-01 00:30 | NUR ---
Temp 101.6,Pt c/o mild MCDANIEL. Admin prn Tylenol. Will continue to monitor.
[2020-02-01] MEDS: ALBUTEROL SULFATE HFA 8GM INHALATION AEROSOL INH SCH ×6 (03:00→23:00)
[2020-02-01 05:35] LABS: BASOPHILS % 0.3 % (0.0-1.0); EOSINOPHILS # (AUTO) 0.2 (0.0-0.4); EOSINOPHILS % 1.1 % (0.0-6.0); HEMATOCRIT 32.8 % (34.2-44.1); HEMOGLOBIN 10.4 g/dL (12.0-16.0); LYMPHOCYTES # (AUTO) 1.4 (1.0-3.2); MEAN CORPUSCULAR HEMOGLOBIN 26.7 pg (28-32); MEAN CORPUSCULAR HGB CONC 31.7 g/dL (31-35); MEAN CORPUSCULAR VOLUME 84.1 fL (81-99); MONOCYTES # (AUTO) 0.3 (0.2-0.8); MONOCYTES % 2.1 % (4.4-11.3); PLATELET COUNT 264 x10e3/uL (140-360); RED CELL DISTRIBUTION WIDTH 13.2 % (11.7-14.4)
[2020-02-01 05:54] LABS: ANION GAP 14.6 mmol/L (8-16); BLOOD UREA NITROGEN 10 mg/dL (7-26); BUN/CREATININE RATIO 16 (6-25); CALCIUM 9.1 mg/dL (8.4-10.2); CARBON DIOXIDE 26 mmol/L (22-29); CHLORIDE 99 mmol/L (98-107); CREATININE, SERUM 0.62 mg/dL (0.57-1.11); EST GLOMERULAR FILTRATION RATE > 60 ML/MIN (60-); GLUCOSE 139 mg/dL (74-118); POTASSIUM 3.6 mmol/L (3.5-5.1); SODIUM 136 mmol/L (136-145)
--- NOTE | 2020-02-01 06:01 | Progress Note ---
DATE: 01/28/2020 SUBJECTIVE: Ms. Aguilar is feeling better today. She is still short of breath. She has no fever. Her temperature is 98.9. . Her labs reviewed. Blood culture so far still negative. Sputum cultures showed gram-positive cocci and gram-negative bacilli and moderate WBC. Her COVID-19 is still pending. Her white count came down to 12.7. Her hemoglobin 10.8. Her HIV was negative. COVID-19 is pending. Influenza was negative. PHYSICAL EXAMINATION: GENERAL: She is currently alert and oriented. Does not seem to be in acute distress. VITAL SIGNS: Stable, currently afebrile. HEENT: Not icteric. NECK: Supple. CHEST: Few crackles bilateral. COR: S1 and S2. No S3, S4, or murmurs. ABDOMEN: Soft. Bowel sounds present. No tenderness. EXTREMITIES: No edema. SKIN: No rash. IMPRESSION: Sepsis on admission, community-acquired pneumonia. Clinically getting better. The patient is on azithromycin and ceftriaxone. I would like to correct a mistake in my note from yesterday. It is said that her COVID-90 was negative. Her COVID-19 actually still pending as of today. Discussed with the patient. We will follow. MD MELISSA Mccarthy/EVARISTO /[id number]
[2020-02-01] MEDS: OXYMETAZOLINE HCL 0.05% NAS 1 SPRAY BTL SCH ×2 (09:00→16:52)
[2020-02-01] MEDS: SALINE 0.65% NAS SOLN 1 SPRAY BTL SCH ×2 (09:00→16:52)
[2020-02-01] MEDS: ACETAMINOPHEN 325 MG TAB PO PRN ×3 (09:14→18:26)
[2020-02-01] MEDS: GABAPENTIN 100 MG CAP PO SCH ×3 (09:14→20:57)
[2020-02-01] MEDS: AZITHROMYCIN 500MG/NS 250 ML 250 ML IV SCH (14:35)
--- NOTE | 2020-02-01 15:42 | NUR ---
Pulmonary Medicine DATE 02/01/2020 SUBJECTIVE: 100.6 temp report still on venti mask feels slightly better eating little REVIEW OF SYSTEMS: no headaches, no rash OBJECTIVE: VITAL SIGNS: Vital signs noted and reviewed per the chart record. GENERAL: In bed, pale. NAD however HEENT: Normocephalic atraumatic. NECK: Supple. Throat midline. LUNGS: Bilateral air entry with rare rhonchi, decreased breath sounds noted. CARDIOVASCULAR: S1, S2. No murmurs, rubs, or gallops. ABDOMEN: Soft, nontender. EXTREMITIES: No clubbing, no cyanosis, no edema. INTEGUMENT: No rash or purpura. NEUROLOGIC: Nonfocal. Moves all four extremities. LABORATORY DATA: k 3.6, cr -.8, wbc 14, plt 264 IMPRESSION: 1. Multifocal pneumonia, COVID-19. 2. Mild acute hepatitis, due to viral infection. 3. Asthma with exacerbation. 4. Chronic mild allergies. 5. Leucocytosis PLAN: Oxygen per protocol, Venturi Mask for now --wean as tolerated Follow fluid status closely Bed positioning maneuvers Some prn steroids for asthma exacerbation-- will redose if needed Continue Bronchodilators Continue Antibiotics as ordered DVT ppx recheck serum inflammatory biomarkers Thank you very much, Dr. Luevano for this consult. Please call for questions.
--- NOTE | 2020-02-01 16:25 | Progress Note ---
DATE: SUBJECTIVE: Ms. Aguilar says she is feeling better. Her breathing is better. She can walk to the bedside commode with less shortness of breath. She still has fever of 101. Her heart rate is 120, and blood pressure is 131/72. REVIEW OF SYSTEMS: Otherwise beside the symptom, she denies any. PHYSICAL EXAMINATION: GENERAL: She is currently alert, oriented, does not seem to be in any acute distress. VITAL SIGNS: Stable. Currently afebrile, but she had fever earlier. HEENT: She is not icteric. NECK: Supple. CHEST: Crackles bilaterally. COR: S1, S2. No S3, S4 or murmur. ABDOMEN: Soft. IMPRESSION: 1. Pneumonia, COVID-19. Continue droplet isolation. Continue supportive care. 2. Hypoxemia. 3. We will follow. Discussed with the patient. Discussed with medical team. MD MELISSA Mccarthy/EVARISTO /[id number]
[2020-02-01] MEDS: ENOXAPARIN SOD INJ 40 MG/0.4 ML SYR SC SCH (16:52)
[2020-02-02] VITALS (8 sets, daily range): BP systolic 109–142; BP diastolic 63–75
[2020-02-02] MEDS: CEFTRIAXONE SOD 1 GM/NS 50 ML 50 ML IV SCH
[2020-02-02] MEDS: ALBUTEROL SULFATE HFA 8GM INHALATION AEROSOL INH SCH ×3 (03:00→23:00)
[2020-02-02 05:54] LABS: BASOPHILS # (AUTO) 0.1 (0.0-0.1); BASOPHILS % 0.3 % (0.0-1.0); EOSINOPHILS # (AUTO) 0.2 (0.0-0.4); EOSINOPHILS % 1.2 % (0.0-6.0); HEMATOCRIT 32.9 % (34.2-44.1); HEMOGLOBIN 10.8 g/dL (12.0-16.0); LYMPHOCYTES # (AUTO) 1.7 (1.0-3.2); MEAN CORPUSCULAR HEMOGLOBIN 27.6 pg (28-32); MEAN CORPUSCULAR HGB CONC 32.8 g/dL (31-35); MEAN CORPUSCULAR VOLUME 84.1 fL (81-99); MONOCYTES # (AUTO) 0.4 (0.2-0.8); MONOCYTES % 2.4 % (4.4-11.3); NEUTROPHILS # (AUTO) 12.7 (2.1-6.9); PLATELET COUNT 323 x10e3/uL (140-360); RED BLOOD COUNT 3.91 x10e6/uL (3.6-5.1); RED CELL DISTRIBUTION WIDTH 13.2 % (11.7-14.4)
[2020-02-02 06:26] LABS: ANION GAP 13.9 mmol/L (8-16); BLOOD UREA NITROGEN 11 mg/dL (7-26); BUN/CREATININE RATIO 18 (6-25); CARBON DIOXIDE 26 mmol/L (22-29); CHLORIDE 99 mmol/L (98-107); EST GLOMERULAR FILTRATION RATE > 60 ML/MIN (60-); GLUCOSE 102 mg/dL (74-118); POTASSIUM 3.9 mmol/L (3.5-5.1); SODIUM 135 mmol/L (136-145)
[2020-02-02] MEDS: SALINE 0.65% NAS SOLN 1 SPRAY BTL SCH ×2 (08:14→16:15)
[2020-02-02] MEDS: GABAPENTIN 100 MG CAP PO SCH ×3 (08:14→20:28)
[2020-02-02] MEDS: OXYMETAZOLINE HCL 0.05% NAS 1 SPRAY BTL SCH ×2 (08:14→16:15)
[2020-02-02] MEDS: AZITHROMYCIN 500MG/NS 250 ML 250 ML IV SCH (11:50)
--- NOTE | 2020-02-02 12:09 | Diagnostic Imaging Report ---
EXAMINATION: CHEST SINGLE (PORTABLE) INDICATION:f/u covid/pna COMPARISON: Chest radiograph 01/31/20. FINDINGS: TUBES and LINES: Right arm PICC which terminates in the SVC. LUNGS: Low lung volumes. Slightly increased bilateral mid and lower lung zone predominant airspace opacities. PLEURA: Possible trace left pleural effusion. No pneumothorax. HEART AND MEDIASTINUM: The cardiomediastinal silhouette is unremarkable. BONES AND SOFT TISSUES: No acute osseous lesion. Soft tissues are unremarkable. UPPER ABDOMEN: No free air under the diaphragm. IMPRESSION: Slightly increased multifocal airspace opacities, compatible with pneumonia. Signed by: Dr. David Hernandez MD on 02/02/2020 12:06 PM
--- NOTE | 2020-02-02 15:30 | NUR ---
aware D-dimer 4000. No new orders at this time
[2020-02-02] MEDS: ENOXAPARIN SOD INJ 40 MG/0.4 ML SYR SC SCH (16:15)
--- NOTE | 2020-02-02 16:27 | NUR ---
Pulmonary Medicine DATE 02/02/2020 SUBJECTIVE: better again 40% venti mask sob still easily, but not as bad as previous eating well REVIEW OF SYSTEMS: no headaches, no rash OBJECTIVE: VITAL SIGNS: Vital signs noted and reviewed per the chart record. GENERAL: pale, more energy. in bed HEENT: Normocephalic atraumatic. NECK: Supple. Throat midline. LUNGS: Bilateral air entry with rare rhonchi, decreased breath sounds noted. CARDIOVASCULAR: S1, S2. No murmurs, rubs, or gallops. ABDOMEN: Soft, nontender. EXTREMITIES: No clubbing, no cyanosis, no edema. INTEGUMENT: No rash or purpura. NEUROLOGIC: Nonfocal. Moves all four extremities. LABORATORY DATA: k 3.9. cr 0.60. wbc 15. hct 32, plt 323 IMPRESSION: 1. Multifocal pneumonia, COVID-19. 2. Mild acute hepatitis, due to viral infection. 3. Asthma with exacerbation. 4. Chronic mild allergies. 5. Leucocytosis PLAN: Oxygen per protocol, Venturi Mask for now --wean as tolerated Follow fluid status closely Bed positioning maneuvers Rare PRN steroids for asthma exacerbation-- will redose if needed Continue Bronchodilators Continue Antibiotics as ordered DVT ppx Thank you very much, Dr. Luevano for this consult. Please call for questions.
--- NOTE | 2020-02-02 17:07 | Progress Note ---
DATE: SUBJECTIVE: Ms. Aguilar is feeling better. Her oxygenation seems to be getting better. REVIEW OF SYSTEMS: HEENT: Negative. PULMONARY: Some minimal cough. CARDIAC: Negative. All other systems within normal limit. PHYSICAL EXAMINATION: GENERAL: She is currently alert, oriented, does not seem to be in acute distress. VITAL SIGNS: Stable, currently temperature 100. HEENT: She is not icteric. NECK: Supple. CHEST: Clear. COR: S1, S2. No murmurs. ABDOMEN: Soft IMPRESSION: COVID-19, pneumonia with pulmonary injury. PLAN: Clinically, doing better. I am going to stop her antibiotic. Her oxygenation is improving. If she continued to improve within a day or two, she will be discharged home with home oxygen with self quarantine for 3-4 weeks post discharge, since the reports that the patient was more severe, could have infection and could have virus for prolonged time, mainly in the stools. I discussed with the patient. We will follow. MD MELISSA Mccarthy/EVARISTO /[id number]
--- NOTE | 2020-02-02 19:03 | NUR ---
Report given to oncoming nurse of patient's status. No s/s of acute distress noted.
[2020-02-02] MEDS: ACETAMINOPHEN 325 MG TAB PO PRN (20:45)
[2020-02-03] VITALS (8 sets, daily range): BP systolic 107–120; BP diastolic 53–65
[2020-02-03] MEDS: ALBUTEROL SULFATE HFA 8GM INHALATION AEROSOL INH SCH ×6 (03:28→23:00)
[2020-02-03 05:47] LABS: BASOPHILS % 0.2 % (0.0-1.0); EOSINOPHILS # (AUTO) 0.2 (0.0-0.4); EOSINOPHILS % 1.2 % (0.0-6.0); HEMATOCRIT 30.4 % (34.2-44.1); HEMOGLOBIN 9.8 g/dL (12.0-16.0); LYMPHOCYTES # (AUTO) 1.1 (1.0-3.2); LYMPHOCYTES % 6.5 % (18.0-39.1); MEAN CORPUSCULAR HEMOGLOBIN 27.1 pg (28-32); MEAN CORPUSCULAR HGB CONC 32.2 g/dL (31-35); MEAN CORPUSCULAR VOLUME 84.2 fL (81-99); MONOCYTES # (AUTO) 0.5 (0.2-0.8); MONOCYTES % 2.9 % (4.4-11.3); NEUTROPHILS % 87.9 % (38.7-80.0); PLATELET COUNT 332 x10e3/uL (140-360); RED BLOOD COUNT 3.61 x10e6/uL (3.6-5.1); RED CELL DISTRIBUTION WIDTH 13.1 % (11.7-14.4)
[2020-02-03] MEDS: ACETAMINOPHEN 325 MG TAB PO PRN ×2 (05:53→20:30)
[2020-02-03 06:11] LABS: BLOOD UREA NITROGEN 9 mg/dL (7-26); BUN/CREATININE RATIO 14 (6-25); CALCIUM 8.6 mg/dL (8.4-10.2); CARBON DIOXIDE 27 mmol/L (22-29); CHLORIDE 98 mmol/L (98-107); CREATININE, SERUM 0.65 mg/dL (0.57-1.11); EST GLOMERULAR FILTRATION RATE > 60 ML/MIN (60-); GLUCOSE 125 mg/dL (74-118); SODIUM 137 mmol/L (136-145)
[2020-02-03] MEDS: GABAPENTIN 100 MG CAP PO SCH ×3 (08:09→21:55)
[2020-02-03] MEDS: OXYMETAZOLINE HCL 0.05% NAS 1 SPRAY BTL SCH ×2 (08:09→16:09)
[2020-02-03] MEDS: GUAIFENESIN 600MG/DEXTROMETHORPHAN 30MG TABSR PO PRN (08:09)
[2020-02-03] MEDS: SALINE 0.65% NAS SOLN 1 SPRAY BTL SCH ×2 (08:09→16:10)
--- NOTE | 2020-02-03 10:20 | NUR ---
ASSESSMENT: Spiritual concern Pt thankful. Pt states she feels "much better." Intervention: Reminded pt of availability of ornithology teacher and how to reach ornithology teacher, if needed. Outcome: Pt expressed appreciation for call. No need to follow at this time. ERIN GROSS Compressor Station Engineer Spiritual Care Department O: [phone]
--- NOTE | 2020-02-03 10:35 | NUR ---
patient assisted to shower. did well on 40% venti mask throughout shower. linen changed, tele leads reapplied.
--- NOTE | 2020-02-03 12:51 | NUR ---
Pulmonary Medicine DATE 02/03/2020 SUBJECTIVE: feels >50% of baseline now inflammatory markers still high/increasing REVIEW OF SYSTEMS: no headaches, no rash OBJECTIVE: VITAL SIGNS: Vital signs noted and reviewed per the chart record. GENERAL: more energy. in bed HEENT: Normocephalic atraumatic. NECK: Supple. Throat midline. LUNGS: Bilateral air entry with rare rhonchi, ok breath sounds CARDIOVASCULAR: S1, S2. No murmurs, rubs, or gallops. ABDOMEN: Soft, nontender. EXTREMITIES: No clubbing, no cyanosis, no edema. INTEGUMENT: No rash or purpura. NEUROLOGIC: Nonfocal. Moves all four extremities. LABORATORY DATA: k 3.9. cr 0.60. wbc 15. hct 32, plt 323 IMPRESSION: 1. Multifocal pneumonia, COVID-19. 2. Mild acute hepatitis, due to viral infection. 3. Asthma with exacerbation. 4. Chronic mild allergies. 5. Leucocytosis PLAN: Oxygen per protocol, Venturi Mask for now --wean as tolerated Follow fluid status closely Bed positioning maneuvers Rare PRN steroids for asthma exacerbation-- will redose if needed Continue Bronchodilators Continue Antibiotics as ordered DVT ppx Thank you very much, Dr. Luevano for this consult. Please call for questions.
--- NOTE | 2020-02-03 14:00 | NUR ---
patient stating that she felt as if too much oxygen were blowing through her mask. moved mask to 30% at 9L. o2 sat- 99% at rest. no complaints of shortness of breath from patient. wctm.
--- NOTE | 2020-02-03 14:39 | NUR ---
Nutrition Screen Note RD Recommendation for Physician: -Recommend liberalizing diet to encourage po intake Plan of Care: RD following, monitoring for tolerance and adequacy Nutrition reason for involvement: LOS Primary Diagnose(s): Pneumonia PMH: Asthma Ht: 59 in Wt: 170 lb BMI: 34.3 kg/m2 IBW: [address] Assessment: (02/02) 49 YOF admitted for pneumonia and possible COVID-19. Pt evaluated today for LOS. Pt reports good appetite and intake SOCIAL SCIENCES RESEARCH SCIENTIST, reports that she has not been eating much recently as she does not like the food, but her appetite remains good. Pt denies any wt loss, reports being wt stable at 167#. Pt denies any N/V/C/D. Obtained pt food preferences for [facility]. Pt with no questions or concerns at time of call. Chart reviewed. Labs and meds reviewed. Will continue to monitor. Current Diet: Cardiac Malnutrition Evaluation (02/03/20) The patient does not meet criteria for a specified degree of malnutrition at this time. Will re-evaluate at follow-up as appropriate. Diet Education Needs Assessment: Diet education not indicated. Diet tolerance: tolerating po Nutrition Care Level: low Signed: Emilee Justice RD, LD, [facility]
--- NOTE | 2020-02-03 16:18 | NUR ---
patient placed on 4L nasal cannula. doing well, complains of no shortness of breath. 100% at rest. wctm.
--- NOTE | 2020-02-03 18:16 | NUR ---
results of saturation test- resting on room air- 93% o2 saturation being exerted on room air dropped to 80% then o2 being exerted while on 4L- o2 saturation is 95%. paper copy of results placed on chart.
--- NOTE | 2020-02-03 19:17 | Progress Note ---
DATE: SUBJECTIVE: Ms. Aguilar is feeling much better today. Her breathing is improving. She is down to 4 L. REVIEW OF SYSTEMS: Otherwise negative. PHYSICAL EXAMINATION: GENERAL: She is currently alert, oriented, does not seem to be in acute distress. VITAL SIGNS: Stable, currently afebrile. HEENT: Not icteric. NECK: Supple. CHEST: Clear. HEART: S1, S2. No S3, S4, or murmur. ABDOMEN: Soft. Bowel sounds present. EXTREMITIES: No edema. IMPRESSION AND PLAN: COVID-19 pneumonia, clinically getting better, reported to be hypoxemic, and discharge home. We need to arrange home oxygen. Discussed with case management can be discharged home with home oxygen use as needed. Albuterol inhaler as needed. Follow up in 2 weeks. Home quarantine for 2 weeks. MD MELISSA Mccarthy/EVARISTO /[id number]
--- NOTE | 2020-02-03 20:28 | NUR ---
Patient visited in room during nursing rounds. Patient alert and oriented x3. No distress or discomfort noted. Pt on droplet isolation for positive COVID diagnosis. Pt ambulatory with standby assist prn. On dietary aide cook and continuous pulse oximeter. Call franklin within reach. Will monitor pt closely.
[2020-02-04] MEDS: ALBUTEROL SULFATE HFA 8GM INHALATION AEROSOL INH SCH ×3 (03:00→12:22)
[2020-02-04 04:00] VITALS: BP 109/59
[2020-02-04 05:29] LABS: BASOPHILS % 0.3 % (0.0-1.0); EOSINOPHILS # (AUTO) 0.2 (0.0-0.4); EOSINOPHILS % 2.1 % (0.0-6.0); HEMATOCRIT 29.4 % (34.2-44.1); HEMOGLOBIN 9.7 g/dL (12.0-16.0); LYMPHOCYTES # (AUTO) 1.7 (1.0-3.2); LYMPHOCYTES % 18.8 % (18.0-39.1); MEAN CORPUSCULAR HEMOGLOBIN 27.9 pg (28-32); MEAN CORPUSCULAR VOLUME 84.5 fL (81-99); MONOCYTES # (AUTO) 0.4 (0.2-0.8); MONOCYTES % 3.8 % (4.4-11.3); NEUTROPHILS # (AUTO) 6.7 (2.1-6.9); NEUTROPHILS % 72.9 % (38.7-80.0); PLATELET COUNT 370 x10e3/uL (140-360); RED BLOOD COUNT 3.48 x10e6/uL (3.6-5.1); RED CELL DISTRIBUTION WIDTH 13.2 % (11.7-14.4)
[2020-02-04 08:49] VITALS: BP 100/59
[2020-02-04] MEDS: GABAPENTIN 100 MG CAP PO SCH (09:22)
[2020-02-04] MEDS: SALINE 0.65% NAS SOLN 1 SPRAY BTL SCH (09:22)
[2020-02-04 09:31] VITALS: BP 100/59
--- NOTE | 2020-02-04 09:34 | NUR ---
Received order to set up home oxygen. Home O2 eval was done. Pt desaturated to 80% on RA. CM called pt's room, since pt is in isolation. Spoke to pt regarding home O2. States she has never had home oxygen previously. States to use any company in network with her insurance. Received telephone consent for [facility]. Choice letter placed in front of chart. Referral faxed to [facility] at [phone]. Ted Guzman with [facility] was notified of referral and will come by and deliver portable oxygen.
--- NOTE | 2020-02-04 11:34 | NUR ---
Portable home oxygen has been delivered to bedside.
[2020-02-04 12:04] VITALS: BP 126/76
[2020-02-04] MEDS ORDERED: ENOXAPARIN40 MG/0.4 SC (12:22)
[2020-02-04] MEDS ORDERED: XARELTO10 MG PO ×2 (12:26→14:02)
--- NOTE | 2020-02-04 12:53 | NUR ---
Pulmonary Medicine DATE 02/04/2020 SUBJECTIVE: patient with desaturation to 80% RA oxygen, at exertion stable symptoms she walked, no excess dizziness REVIEW OF SYSTEMS: no headaches, no rash OBJECTIVE: VITAL SIGNS: Vital signs noted and reviewed per the chart record. GENERAL: NAD, in bed HEENT: Normocephalic atraumatic. NECK: Supple. Throat midline. LUNGS: Bilateral air entry with rare rhonchi, ok breath sounds CARDIOVASCULAR: S1, S2. No murmurs, rubs, or gallops. ABDOMEN: Soft, nontender. EXTREMITIES: No clubbing, no cyanosis, no edema. INTEGUMENT: No rash or purpura. NEUROLOGIC: Nonfocal. Moves all four extremities. LABORATORY DATA: no new updates IMPRESSION: 1. Multifocal pneumonia, COVID-19. 2. Mild acute hepatitis, due to viral infection. 3. Asthma with exacerbation. 4. Chronic mild allergies. 5. Leucocytosis PLAN: Oxygen per protocol --ordered home oxygen Follow fluid status closely Bed positioning maneuvers Rare PRN steroids for asthma exacerbation-- will redose if needed Continue Bronchodilators DVT ppx Thank you very much, Dr. Luevano for this consult. Please call for questions.
--- NOTE | 2020-02-04 15:02 | NUR ---
patient discharged. clear on instructions to isolate self for 2 weeks. understands to return to Dr. Vivar office & Dr. Carty office in 2 weeks. prescriptions given to patient, along with discharge paperwork & instructions. right picc removed, tip intact. bleeding controlled and dressing applied. patient wheeled to daughter's vehicle on 3L of o2 in stable condition.
--- NOTE | 2020-02-04 20:57 | Discharge Summary ---
ADMISSION DIAGNOSES: 1. Multifocal pneumonia, present on admission. 2. Acute exacerbation of asthma. 3. Hypertension. 4. Neuropathy. 5. Obesity with a BMI of 33.3. DISCHARGE DIAGNOSES: 1. Multifocal pneumonia, present on admission. 2. Acute exacerbation of asthma. 3. Hypertension. 4. Neuropathy. 5. Obesity with a BMI of 33.3. 6. COVID-19 pneumonia, present on admission. HISTORY: 1. Asthma. 2. Hyperlipidemia. 3. Hypertension. SURGICAL HISTORY: Right total knee replacement, x2, abdominal hernia repair, and T and A. FAMILY HISTORY: The patient's brother has diabetes. The patient's mom and aunt had cancer. HOSPITAL COURSE: A 49-year-old female admits with complaints of dyspnea and dyspnea on exertion for the last 3 days. She came to the ER because of continued to get worse and she had a fever for 3 days of 100.1. She denies sick contacts and recent travel. On admission, the patient had a chest x-ray showed bilateral [id number] lung field airspace opacity. She was started on Zithromax, Rocephin IV, and Pulmonology were consulted. COVID-19 was ordered. The patient was started on inhalers and continued her home medicine. Initially, patient was on a non-rebreather at 15 L/minutes. COVID-19 came back positive. Her C-reactive protein, which drawn and continued to trend down during hospitalization. Flu was negative. HIV was negative. Blood cultures negative. Sputum culture negative. The patient's oxygen was weaned from non-rebreather to Venti mask to nasal cannula. She is feeling much better and is ready to discharge home. At the time of discharge, she is requiring 4 L/minute nasal cannula as her oxygen dropped to 80% on room air with exertion. She will discharge home and was instructed to continue to isolate herself from family members. She was given a prescription for Xarelto for 14 days. The patient understands discharge instructions and agrees to plan. Vital signs are stable. The patient is afebrile. Dictated by Nancy Davidson NP Chris Luevano MD NOEMY/MODL /[id number]
--- NOTE | 2020-02-10 12:12 | Progress Note ---
DATE: SUBJECTIVE: Ms. Aguilar is doing much better today. REVIEW OF SYSTEMS: HEENT: Negative. PULMONARY: Negative. CARDIAC: Negative. PHYSICAL EXAMINATION: GENERAL: Currently alert, oriented, does not seem in acute distress. VITAL SIGNS: Stable, afebrile. HEENT: She is not icteric. NECK: Supple. CHEST: Clear. HEART: S1, S2. No S3, S4 or murmurs. ABDOMEN: Soft. IMPRESSION: COVID-19, clinically doing better. Patient discharged home with home oxygen. Follow up in 2 weeks. Discussed with the patient at length about quarantine to see me in 2 weeks. We will follow. MD MELISSA Mccarthy/EVARISTO /[id number]
== END 2020-02-04 15:08 | disposition home or self-care (01) | DRG 177 ==
LOC: ER 07:57 → ERHOLD 12:32 → ER 17:04 → IMCU 18:12
PROVIDERS: ADMIT Internal Medicine; ATTEND Internal Medicine
PROC: 02HV33Z Insertion of Infusion Device into Superior Vena Cava, Percutaneous Approach (ICD-10-PCS; principal; 2020-01-28)
DX: U07.1 COVID-19 (principal); J12.89 Other viral pneumonia; B17.9 Acute viral hepatitis, unspecified; J45.901 Unspecified asthma with (acute) exacerbation; J44.1 Chronic obstructive pulmonary disease with (acute) exacerbation; J45.909 Unspecified asthma, uncomplicated; G62.9 Polyneuropathy, unspecified; E66.9 Obesity, unspecified; Z68.33 Body mass index [BMI] 33.0-33.9, adult; I10 Essential (primary) hypertension; Z96.651 Presence of right artificial knee joint; R09.02 Hypoxemia
CPT/HCPCS: 36415; 36569; 71045; 80048; 80053; 81001; 82550; 82553; 82728; 82948; 83036; 83615; 83735; 84443; 84484; 85025; 85379; 85610; 86140; 87040; 87070; 87205; 87390; 87400; 87635; 99284; G0433; G0435; J0360; J0456; J0696; J1650; J2405; J3370